=== PATIENT | female | born 1970 | race Caucasian/White ===

== ENCOUNTER 2023-07-24 19:41 | Emergency (ER) | payer OTHER, SELFPAY ==
--- NOTE | ~2023-07-24 | XR_ITS ---
EXAMINATION: XR WRIST, LEFT XR HAND, LEFT CLINICAL INFORMATION: Pain. COMPARISON: None available. TECHNIQUE: PA, lateral, and oblique views of the left wrist and PA, lateral, and oblique views of the left hand FINDINGS: LEFT WRIST: The bones and soft tissues are normal. No fracture. Alignment is anatomic. Joint spaces are maintained. No erosions or soft tissue calcifications. LEFT HAND: The bones and soft tissues are normal. No fracture. Alignment is anatomic. Joint spaces are maintained. No erosions or soft tissue calcifications. XR/XR hand wrist LT IMPRESSION: No significant abnormality identified.
[2023-07-24 19:58] VITALS: BP 140/56; PULSE 63; RESP 18; TEMP 36.2; O2SAT 98; BMI 29.8
--- NOTE | 2023-07-24 19:59 | ED.GENADULT ---
HPI - General Adult General Chief complaint: Extremity Injury, Upper Stated complaint: L wrist pain, fall Time Seen by Provider: 07/24/23 21:30 Source: patient Limitations: no limitations History of Present Illness HPI narrative: 52-year-old female presents with left hand pain. Pain started prior to arrival after mechanical trip and fall. She did not hit her head or lose consciousness. Pain is moderate nature. Worse with moving. The pain does not radiate. There is no numbness or tingling. There is no significant swelling. Patient denies any prodrome. Related Data Allergies Allergy/AdvReac Type Severity Reaction Status Date / Time Penicillins [PENICILLINS] AdvReac Unknown VOMITING Unverified 07/13/20 16:49 From BENADRYL Allergy Unknown ANXIETY/DYS Uncoded 07/13/20 16:49 KINESIA Review of Systems Review of Systems: CONSTITUTIONAL: Denies weight loss, fever and chills. HEENT: Denies changes in vision and hearing. RESPIRATORY: Denies SOB and cough. CV: Denies palpitations no CP. GI: Denies abdominal pain, nausea, vomiting and diarrhea. : Denies dysuria and urinary frequency. MSK: + myalgia and joint pain. SKIN: Denies rash and pruritus. NEUROLOGICAL: Denies headache and syncope. PSYCHIATRIC: Denies recent changes in mood. Denies anxiety and depression. All other ROS are negative unless in HPI PMFSH Social History Social History Smoked in Last 30 Days: Yes Use of substances other than those prescribed or required for medical reasons: No Advance Directives: No Advance Directives Information Provided: No Physical Exam ED Vital Signs: Vital Signs - 24 hr 07/24/23 19:58 Temperature 97.2 F Pulse Rate 63 Respiratory Rate 18 Blood Pressure 140/56 H Pulse Oximetry 98 Oxygen Delivery Method Room Air BMI result Body Mass Index 29.8 GEN: Well developed, no acute distress, alert, oriented HEENT: Normocephalic, atraumatic, normal external ears, nose appears normal Eyes: Normal to appearance Neck: Supple, no lymphadenopathy Respiratory: Talks in complete sentences, no respiratory distress Extremities: No clubbing cyanosis or edema, tenderness to the distal left 5th metacarpal, no deformity, neurovascularly intact, no snuffbox tenderness Neurologic: No focal neurologic deficits, cranial nerves 2-12 intact, gait normal Skin: No rash Course Course Course Narrative: RME: 52 yosatish jain presents to the ED for left wirst pain after falling unto wrist chasing SoN. patient denies hitting head. Xray of wrist ordered Reevaluation(s) Reevaluation #1: X-ray shows no evidence of fracture. This is most likely contusion. Recommend ice, Tylenol and ibuprofen. Follow up as needed. Time: 21:59 Medical Decision Making Medical Decision Making MDM Narrative: 52-year-old female presents with acute traumatic left hand pain. Differential diagnosis includes fracture, contusion, sprain, strain. Will review x-ray. I have offered analgesics. Differential Diagnosis Differential Diagnoses: The differential diagnosis associated with the presentation includes (See above) Independent Interpretation I performed an independent interpretation of an: Plain X-Ray (Hand wrist left: No acute traumatic injury) Prescription Management I considered prescription management with: Pain Medication Discharge Plan Discharge Clinical Impression: Contusion of hand Patient Disposition: Home, Self-Care Instructions: Contusion in Adults (ED) Referrals: Priscila Rae MD [Primary Care Provider] - 1 week Interventions: ED Discharge Assessment Last Done: 07/24/23 22:25 Discharge Date/Time: 07/24/23 22:25
--- OUTSIDE RECORDS SUMMARY | 2023-07-24 21:59 | XMS_ITS | Continuity of Care Document ---
Author Name Unknown Organization [facility] ter Address [address] [place] [id number] Care Team Providers Care Bar Manager Name Role Phone Priscila Rae MD Primary Care Physician [phone] Encounter [facility] [place] Date(s): 01/30/23 - 04/07/[address] [id number] Attending Physician: Priscila Rae MD Admitting Physician: Priscila Rae MD Referring Physician: Priscila Rae MD Allergies, Adverse Reactions, Alerts Substance Reaction Severity Status clindamycin N&V Active ciprofloxacin ophthalmic swollen eye Act marie penicillins [D]Nausea and vomiting Activ e sulfa drugs unknown Active Benadryl tardiff dyskinasia Active Immunizations Given and Recorded Vaccine Date Status Refusal Reason [id number] 12y+ bivalent booster vax 10/28/22 Recorded influenza virus vaccine, inactivated 10/24/22 Luiz rded SARS-CoV-2 (COVID-19) mRNA BNT-162b2 vac 10/28/21 Recorded SARS-CoV-2 (COVID-19) mRNA BNT-162b2 vac 03/02/21 Recorded SARS-CoV-2 (COVID-19) mRNA BNT-162b2 vac 01/31/21 Recorded Tet/Diphth/Acel, Pertussis (oldterm) 02/23/09 Give n tetanus/diphtheria/pertussis, acel(Tdap) 02/23/09 Recorded Tetanus-Diphth Toxoids, Adult (oldterm) 1 10/27/96 Given 1Admin Note: Manuf by [employer] biologic labs Medications aspirin 81 mg oral tablet, chewable 81 mg, 1, tablet, By Mouth, Daily, # 30 tablet, Refills 0, Tot. Refills 0, Maintenance, 02/02/23 9:09:00 EDT, Route to Pharmacy Electronically, [facility]/pharmacy #[id number], Partial fill upon patient request if the prescription is for a schedule II opioid drug.... Start Date: 02/02/23 Status: Ordered Lipitor 20 mg oral tablet 1 tablet = 20 mg, By Mouth, Daily at bedtime, # 30 tablet, 0 Refills, Maintenance, 02/02/23 9:09:00EDT, Tablet, [facility]/pharmacy #[id number], Partial fill upon patient request if the prescription is for a schedule II opioid drug., 157, cm, 01/17/23 13:36:00 ED... Start Date: 02/02/23 Status: Ordered nitroglycerin 0.3 mg sublingual tablet 1 tablet = 0.3 mg, Sublingual, Every 5 minutes, PRN for chest pain, # 50 tablet, 0 Refills, Maintenance, 02/02/23 9:19:00 EDT, Tablet, [facility]/pharmacy #[id number], Partial fill upon patient request if the prescription is for a schedule II opioid drug., 157, cm... Start Date: 02/02/23 Status: Ordered Problem List Condition Confirmation Course Effective Dates Status Health Status Informant Chiari I malformation Confirmed Active Generalized anxiety disorder Confirmed Active Hypercholesterolemia Confirmed Active Hyperglycemia Confirmed Active Obese class I Confirmed Active Sleep apnea Confirmed Active Tobacco abuse Confirmed 02/23/09 Active Social History Social History Type Response Smoking Status Current every day sm oker; Type: Cigarettes; Other: 10-15 cig per day; entered on: 12/20/14 Sex Patient Care team information Care Team Personnel Name: Butch RONQUILLO, Priscila Rubalcava Position: [facility] Physician - Primary Care Member Role: PCP Address: Address: [address] [place] [address] [place] [address]- Name: Morena Noel RN Position: [facility] RN Member Role: Primary Care Nurse Name: Danita Thomas Position: [facility] Outreach Member Role: Lifetime Consulting Physician Care Team Related Persons Name: LUCIA ARIAS Address: home [address], [place] Name: MELLY BOYD Address: home [address], [place] Name: MELITON BOYD Address: home [address] [place] [address]
--- OUTSIDE RECORDS SUMMARY | 2023-07-24 21:59 | XMS_ITS | Continuity of Care Document ---
Author Name Unknown Organization [facility] Address [address] [place] [id number]- Care Team Providers Care Curb Attendant Name Role Phone Priscila Rae MD Primary Care Physician Encounter [facility] Date(s): 02/01/23 - 02/02/[address] [address]- Encounter Diagnosis Chest pain(Final) - 02/01/23 Discharge Disposition: A-D/C Home Attending Physician: Mitra Bowman MD Admitting Physician: Atiya Quiles MD Referring Physician: Not on Staff, Referring MD Allergies, Adverse Reactions, Alerts Substance Reaction Severity Status clindamycin N&V Active ciprofloxacin ophthalmic swollen eye Act marie penicillins [D]Nausea and vomiting Activ e sulfa drugs unknown Active Benadryl tardiff dyskinasia Active Immunizations Given and Recorded Vaccine Date Status Refusal Reason [id number] 12y+ bivalent booster vax 10/28/22 Recorded influenza virus vaccine, inactivated 10/24/22 Luiz rded SARS-CoV-2 (COVID-19) mRNA BNT-162b2 vac 10/28/21 Recorded SARS-CoV-2 (COVID-19) mRNA BNT-162b2 vac 03/02/21 Recorded SARS-CoV-2 (COVID-19) mRNA BNT-162b2 vac 01/31/21 Recorded Tet/Diphth/Acel, Pertussis (oldterm) 02/23/09 Give n tetanus/diphtheria/pertussis, acel(Tdap) 02/23/09 Recorded Tetanus-Diphth Toxoids, Adult (oldterm) 1 10/27/96 Given 1Admin Note: Manuf by Mass biologic labs Medications aspirin 81 mg oral tablet, chewable 81 mg, 1, tablet, By Mouth, Daily, # 30 tablet, Refills 0, Tot. Refills 0, Maintenance, 02/02/23 9:09:00 EDT, Route to Pharmacy Electronically, [facility]/pharmacy #[id number], Partial fill upon patient request if the prescription is for a schedule II opioid drug.... Start Date: 02/02/23 Status: Ordered Lipitor 20 mg oral tablet 1 tablet = 20 mg, By Mouth, Daily at bedtime, # 30 tablet, 0 Refills, Maintenance, 02/02/23 9:09:00EDT, Tablet, [facility]/pharmacy #[id number], Partial fill upon patient request if the prescription is for a schedule II opioid drug., 157, cm, 01/17/23 13:36:00 ED... Start Date: 02/02/23 Status: Ordered nitroglycerin 0.3 mg sublingual tablet 1 tablet = 0.3 mg, Sublingual, Every 5 minutes, PRN for chest pain, # 50 tablet, 0 Refills, Maintenance, 02/02/23 9:19:00 EDT, Tablet, [facility]/pharmacy #[id number], Partial fill upon patient request if [...] Confirmed Active Tobacco abuse Confirmed 02/23/09 Active Results Radiology Reports * Exam Date Time Procedure Performing Provider Status 02/01/23 4:05 PM Chest 2 Views Frontal and Lat Bettina Watson; Dinah (Verified) Notes: (Chest 2 Views Frontal and Lat) Reason For Exam: Chest Pain;Other: RESULT: Chest 2 Views Frontal and Lat Chest 2 Views Frontal and Lat Hx of Present Illness: pt states about 1 hour ago was walking up the stairs sharp midsternal chest pain and now intermittend pain and radiates to right upper. pt states SOB with intermittent with chest pain no fever or chills no cardic hx; Reason: Other:; Chest Pain; Clinical Question(s): Other: COMPARISON: 07/31/2017 FINDINGS: LINES AND TUBES: None. LUNGS AND PLEURA: Clear lungs. Normal pulmonary vascularity. No pleural effusion. No pneumothorax. HEART, MEDIASTINUM AND ROXANA: Heart is normal in size. Normal mediastinal and hilar contour. BONES AND SOFT TISSUES: No acute abnormality. There is scoliotic curvature of the spine, unchanged. IMPRESSION: No acute abnormality. WSN: [id number] Ordering Physician: Gildardo Trinh Dictated By: Nikki West MD Dictated Date/Time: 02/01/23 4:10 pm Reviewed By: Nikki West MD Signed By: Nikki West MD Signed Date/Time: 02/01/23 4:10 pm Transcribed By: EMERALD Transcribed Date/Time: 02/01/23 4:10 pm Vital Signs Most recent to oldest [Reference Range]: 1 2 3 Weight 81.1 kg (02/02/23 12:13 AM) Oxygen Saturation [94-100 %] 98 % (02/02/23 8:31 AM) 99 % (02/02/23 5:00 AM) 99 % (02/01/23 11:52 PM) Pulse Rate [55-90 bpm] 53 bpm *L* (02/02/23 8:31 AM) 51 bpm *L* (02/02/23 5:00 AM) 58 bpm (02/01/23 11:52 PM) Blood Pressure [90-138/55-84 mm Hg] 133/64mm Hg (02/02/23 8:31 AM) 106/50mm Hg (02/02/23 5:00 AM) 112/47mm Hg (02/01/23 11:52 PM) Respiratory Rate [16-30 br/min] 18 br/min (02/02/23 8:31 AM) 16 br/min (02/02/23 5:00 AM) 18 br/min (02/02/23 12:58 AM) Temperature [96.8-100.4 DegF] 97.9 DegF (02/02/23 8:31 AM) 97.3 DegF (02/02/23 5:00 AM) 97.4 DegF (02/01/23 11:52 PM) Mode of Delivery (Oxygen) Room air (02/02/23 8:31 AM) Room air (02/02/23 5:00 AM) Room air (02/01/23 11:52 PM) Blood pressure sites Arm, left (02/02/23 8:31 AM) Arm, left (02/02/23 5:00 AM) Arm, left (02/01/23 11:52 PM) Temperature Route Oral (02/02/23 8:31 AM) Oral (02/02/23 5:00 AM) Oral (02/01/23 11:52 PM) Weight Obtained Via Bed scale (02/02/23 12:13 AM) Social History Social History Type Response Smoking Status Current every day sm oker; Type: Cigarettes; Other: 10-15 cig per day; entered on: 12/20/14 Sex Admission evaluation note * Erin RONQUILLO, Nile Seymour: MODIFY, PERFORM Event Display: Admission Note Authored Date: [id number] Patient: ??FRANCOIS MARTINEZ ? Age:??52 Years?Sex:??Female?:??1970?? Chief Complaint/Reason for Consultation chest pain History of Present Illness Ms. Martinez is a 52-year-old female with PMH of cholecystectomy, borderline diabetes, hypercholesterolemia who presented with intermittent chest pain. ?? Patient states that around 2 hours prior to admission??she developed squeezing- like central nonradiating chest pain associated with nausea??while walking up the stairs.??It was also asociated with mild shortness of breath.??Both improved with rest.?? It happened again twice more while walking??hence her had her come to the ED.??No history of heart attacks, no family history of MIs at a young age, no fever/chills/nausea/vomiting. She is an active smoker with at least 30 pack years. Had previously seen a automotive parts salesperson in the past for skipping heart beats, was told she had some evidence of something related to heart beat skipping but is not sure what it was aside from it not being a serious concern, did not need further work up. ?? On arrival to the ER she was hemodynamically stable, labs showed unremarkable CBC, unremarkable BMP, troponin less than 6x2.?? EKG showed sinus rhythm, ventricular rate 69 bpm, PVC, no ST elevations or depressions, no T wave inversions, no Q waves, normal intervals.?? Chest x-ray was unremarkable.?? She was given 324 mg of aspirin.?? Since she continued to have some chest pain decision was made to bring in for ACS rule out. Review of Systems All systems reviewed and negative except as indicated in HPI. Objective Vital Signs?? Temperature: 98.2 DegF (02/01/23 21:01:00) Temperature Route: Oral (02/01/23 21:01:00) Pulse Rate: 55 bpm (02/01/23 21:01:00) Respiratory Rate: 18 br/min (02/01/23 21:01:00) Systolic Blood Pressure: 118 mm Hg (02/01/23 21:01:00) Diastolic Blood Pressure: 69 mm Hg (02/01/23 21:01:00) Blood pressure sites: Arm, left (02/01/23::00) Mean Arterial Pressure: 85 mm Hg (02/01/23 21::00) Pulse Pressure: 49 mm Hg (02/01/23 21:01:00) Oxygen Saturation: 98 % (02/01/23 21:01:00) Mode of Delivery (Oxygen): Room air (02/01/23 21:01:00) Early Warning Score: 0 (02/01/23 23:32:34) ? Intake/Output? No Data Available ? Physical Exam Constitutional: Alert, in no acute distress. Head EENT: Extraocular muscle movement intact.??Moist mucous membranes.?? Neck: Supple. No JVD. Respiratory: Clear to auscultation. No wheezing or crackles. No use of accessory muscles. Cardiovascular: S1S2 regular. No murmurs, rubs or gallops. Gastrointestinal: Abdomen soft, non-tender, non-distended. Normal bowel sounds. Genitourinary: No CVA tenderness. Extremities: No lower extremity pitting??edema. No cyanosis or clubbing. Neurologic: AAOx3, Speech normal. No focal neurological deficits. Skin: No rash. Psychiatric: Normal mood and affect Assessment/Plan Chest pain Rule out ACS -Chest pain is cardiac in nature (exertional, squeeze-like, relieves with rest), differentials include stable angina vs GERD??or costochondritis -EKG with no acute ST elevation or depressions, troponin x2 is negative. -We will admit the patient to telemetry unit, continue cardiac monitoring to rule out fatal arrhythmias -She has received 324 mg of aspirin -EKG/nitro PRN for chest pain -f/u outpatient automotive parts salesperson to evaluate need for stress test ?? Code status: full DVT ppx:??lovenox Diet: cardiac Dispo: obs ?? Total Visit Time: I personally spent a total of 60 minutes, including both qpmn-to-njso and nrl-pxcj-gz-face time on the date of the encounter, addressing the above diagnoses. Activities performed in this time include chart review, obtaining / reviewing history, performing amedically necessary evaluation, documentation and counseling. ?? Nile Khan MD Histories Past Medical History/Problem List Active Problems??(7) Chiari I malformation Generalized anxiety disorder Hypercholesterolemia Hyperglycemia Obese class I Sleep apnea Tobacco abuse ? Past Surgical History History of surgery: 09/26/21 Cholecystectomy: 07/16/17 cysto: 07/03/12 ? Social History Alcohol Details:??Use: Past. 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 Exercise Details:??Self assessment: Good condition. ??Regular exercise: No. Home/Environment Details:??Living situation: Home/Independent. ??Lives with: Children, Spouse. Nutrition/Health Details:??Diet: Regular. Tobacco Details:??Current every day smoker, Other: 10-15 cig per day. ??Type: Cigarettes. ? Family History Mother: Chronic kidney disease; Hypertension Father (): Diabetes mellitus type II; Hypercholesterolemia ?01-JAN-2014 07:2 7:07<$> Pat. Grandmother: Diabetes mellitus type II Mat. Grandfather: Diabetes mellitus type II Sister (Heather): Asthma Son: Asperger's syndrome ? Medications Home Medications Acetaminophen (Tylenol 8 Hour Caplet)?1,000?Milligram?By Mouth?Every 8 hours Multivitamin?Daily ? Inpatient Medications Medications (1) Active SCHEDULED: (1) Enoxaparin 40 mg Inj (Enoxaparin Inj) ??40 mg 0.4 mL, Subcutaneous Injection, Daily CONTINUOUS: (0) PRN: (0) ? Results Recent Labs BLOOD COUNT & DIFF WBC 8.2 k/mm3 ()?? 02/01/2023 15:20 RBC 4.55 m/mm3 ()?? 02/01/2023 15:20 Hgb 13.9 Gm/dL ()?? 02/01/2023 15:20 Hct 41.6 % ()?? 02/01/2023 15:20 MCV 91.4 femtoliters ()?? 02/01/2023 15:20 MCH 30.5 pg ()?? 02/01/2023 15:20 MCHC 33.4 g/dL ()?? 02/01/2023 15:20 Platelet Count 248 k/mm3 ()?? 02/01/2023 15:20 RDW-SD 45.1 femtoliters ()?? 02/01/2023 15:20 MPV 10.3 femtoliters ()?? 02/01/2023 15:20 Nucleated RBC (Automated) 0.0 #/100 WBC'S ()?? 02/01/2023 15:20 Abs. NRBC 0.0 k/mm3 ()?? 02/01/2023 15:20 Abs. Neut 5.1 k/mm3 ()?? 02/01/2023 15:20 Abs. Lymph 2.5 k/mm3 ()?? 02/01/2023 15:20 Abs. Boyle 0.5 k/mm3 ()?? 02/01/2023 15:20 Abs. Eo 0.1 k/mm3 ()?? 02/01/2023 15:20 Abs. Baso 0.1 k/mm3 ()?? 02/01/2023 15:20 Neut % 61.7 % ()?? 02/01/2023 15:20 Lymph % 30.3 % ()?? 02/01/2023 15:20 Boyle % 5.7 % ()?? 02/01/2023 15:20 Eos % 1.2 % ()?? 02/01/2023 15:20 Baso % 0.9 % ()?? 02/01/2023 15:20 Imm Gran 0.2 % ()?? 02/01/2023 15:20 Abs. Imm Gran 0.0 k/mm3 ()?? 02/01/2023 15:20 ?? CARDIAC High Sensitivity Troponin (HSTnT) <6 ng/L ()?? 02/01/2023 17:51 ?? CHEM GENERAL Sodium 141 mmol/L ()?? 02/01/2023 15:20 Potassium 4.0 mmol/L ()?? 02/01/2023 15:20 Chloride 103 mmol/L ()?? 02/01/2023 15:20 Bicarbonate Level 29 mmol/L ()?? 02/01/2023 15:20 Anion Gap 9 ()?? 02/01/2023 15:20 Glucose Level 97 mg/dL ()?? 02/01/2023 15:20 BUN 16 mg/dL ()?? 02/01/2023 15:20 Creatinine-Blood 0.7 mg/dL ()?? 02/01/2023 15:20 Estimated GFR Creatinine 99 ML/MIN/1.73 M2 ()?? 02/01/2023 15:20 Calcium 9.6 mg/dL ()?? 02/01/2023 15:20 ?? HEME OTHER Hold Blue Top SPECIMEN DISCARDED AFTER 4 HOURS. ()?? 02/01/2023 15:20 ?? VIROLOGY COVID-19 by RT-PCR NEGATIVE ()?? 02/01/2023 20:17 ? Blood Glucose Trend Glucose Level: 97 mg/dL (02/01/23 15:20:00) ? CBC, CBC w/Diff?? CBC?? Differential?? WBC: 8.2 k/mm3 (15:20) Abs. Neut: 5.1 k/mm3 (15:20) RBC: 4.55 m/mm3 (15:20) Abs. Lymph: 2.5 k/mm3 (15:20) Hct: 41.6 % (15:20) Abs. Boyle: 0.5 k/mm3 (15:20) RDW-SD: 45.1 femtoliters (15:20) Abs. Eo: 0.1 k/mm3 (15:20) Nucleated RBC (Automated): 0 #/100 WBC'S (15:20) Abs. Baso: 0.1 k/mm3 (15:20) Abs. NRBC: 0 k/mm3 (15:20) Neut %: 61.7 % (15:20) ?? Lymph %: 30.3 % (15:20) ?? Boyle %: 5.7 % (15:20) ?? Eos %: 1.2 % (15:20) ?? Baso %: 0.9 % (15:20) ?? Imm Gran: 0.2 % (15:20) ?? Abs. Imm Gran: 0 k/mm3 (15:20) ? LFT?? No qualifying data available. ?? Urinalysis?? No qualifying data available. ?? Microbiology ?? COVID-19 (Novel Coronavirus), Rapid PCR?? Completed?? Source: Nasal Body Site: Nose Collected Dt/Tm: 02/01/2023 19:16 Last Updated Dt/Tm: 02/01/2023 21:22 ? Blood Gases?? No qualifying data available. ?? EKG study * Event Display: ECG 12-Lead Authored Date: Please click on pdf link to open report * Event Display: ECG 12-Lead Authored Date: Ventricular Rate: 69 BPM Atrial Rate: 69 BPM P-R Interval: 138 ms QRS Duration: 84 ms Q-T Interval: 384 ms QTC Calculation(Bazett): 411 ms P Od[place]: 34 degrees R Odessa: 8 degrees T Od[place]: 25 degrees Sinus rhythm with occasional Premature ventricular complexes Otherwise normal ECG When compared with ECG of 15-NOV-2016 17:07, Premature ventricular complexes are now Present Confirmed by ALEKSANDAR LYONS MD ([id number]) on 02/02/2023 12:06:39 PM [place]: [facility] * Morena Noel RN: PERFORM, SIGN, VERIFY Event Display: Progress Note Hospital Authored Date: Patient: FRANCOIS MARTINEZ Age: 52 years Sex: Female : 1970 Associated Diagnoses: None Author: Morena Noel RN Findings Upon arrival to unit patient alert and oriented to self/place/time/event Patient's VSS and comfortable on RA Patient with no active chest pain, N/V, SOB, dizziness, headache, vision changes Patient is ambulatory, voiding appropriately and tolerating PO intake Patient aware of negative trops as stated by Provider Telemetry monitoring continues, NSR with PVC and ventricular bigeminy Unit orientation provided to patient, call dobbins within reach, safety and comfort measures maintained Note * Altagracia Cabrera RN: PERFORM Event Display: Discharge/Transfer Note Hospital Authored Date: Nursing Discharge Note Entered On: 02/02/2023 9:52 EDT Performed On: 02/02/2023 9:52 EDT by Altagracia Cabrera RN Nursing Discharge Note 2 Discharge Time : 02/02/2023 9:52 EDT Discharge Level of Care at Discharge : Home/Skilled Nursing/Foster Care Patient Left Unit Via : Ambulatory Patient Accompanied Off Unit with : Responsible adult DC Instructions Provided & Signed by Pt : Yes Patient Understands D/C Instructions : Yes Patient Instructions Discharge Signed : Yes Did Pt have Specialty Bed or Wound Vac : No Altagracia Cabrera RN - 02/02/2023 9:52 EDT * Colby RONQUILLO, Mitra: PERFORM Event Display: Discharge/Transfer Note Hospital Authored Date: Patient: ??FRANCOIS MARTINEZ ? Age:??52 Years?Sex:??Female?:??1970?? Patient Information Discharge Location: [facility] Primary Care Physician: Priscila Rae MD Admit Date/Time: 02/01/23 15:11 Discharge Disposition Discharge Disposition: Home: No Services Discharge Diagnosis Chest pain (R07.9) ?? _ Discharge Medications Aspirin (aspirin 81 mg oral tablet, chewable)?81?Milligram?1?tablet?By Mouth?Daily Atorvastatin (Lipitor 20 mg oral tablet)?1?tab(s)?20?Milligram?By Mouth?Daily at bedtime Nitroglycerin (nitroglycerin 0.3 mg sublingual tablet)?1?tab(s)?0.3?Milligram?Sublingual?Every 5 minutes?as needed?for chest pain ? Quality Measures Tobacco Use Treatment:? Medications Started Aspirin (aspirin 81 mg oral tablet, chewable)?81?Milligram?1?tablet?By Mouth?Daily Atorvastatin (Lipitor 20 mg oral tablet)?1?tab(s)?20?Milligram?By Mouth?Daily at bedtime. Nitroglycerin (nitroglycerin 0.3 mg sublingual tablet)?1?tab(s)?0.3?Milligram?Sublingual?Every 5 minutes?as needed?for chest pain. Medications Discontinued None. Doses Changed None. Allergies Allergies ?(Active and Proposed Allergies Only) sulfa drugs? (Severity: Unknown severity, Onset: Unknown) ?Reactions: unknown clindamycin? (Severity: Unknown severity, Onset: Unknown) ?Reactions: N&V Benadryl? (Severity: Unknown severity, Onset: Unknown) ?Reactions: tardiff dyskinasia ciprofloxacin ophthalmic? (Severity: Unknown severity, Onset: Unknown) ?Reactions: swollen eye penicillins? (Severity: Unknown severity, Onset: Unknown) ?Reactions: [D]Nausea and vomiting ? PCP Follow-Up/Heads-Up Please consider outpatient stress test. Future Appointments Friday 7:00 PM EDT ?? With: Where: [facility] Radiology [facility] [address] [place] [address]- Friday 10:30 AM EDT ?? With: Where: [facility] Radiology [facility] [address], [address] [place] [address]- Friday 1:00 PM EDT ?? With: Butch RONQUILLO, Priscila Where: Primary Care [address] [address]- Hospital Course ??52-year-old female with PMH of cholecystectomy, borderline diabetes, hypercholesterolemia who presented with intermittent chest pain. ?? Chest pain Rule out ACS Denies any further chest pain to me this morning. -She has received 324 mg of aspirin Risk factor includes??prediabetes and history of hypercholesteremia however not taking any medication at home. I have started the patient on aspirin 81 mg daily. Atorvastatin 20 mg daily. Also will discharge her with??as needed nitroglycerin on board. She will see her PCP in 1 week??and would be benefited??by outpatient tress test.?? Patient was counseled to touch base with PCP for outpatient tress test which she understand completely. Objective Measurements?? Weight: 81.1 kg (02/02/23) ?? Vital Signs?? Temperature: 97.9 DegF (02/02/23 08:31:00) Temperature Route: Oral (02/02/23 08:31:00) Pulse Rate:??53 bpm??Low (02/02/23 08:31:00) Respiratory Rate: 18 br/min (02/02/23 08:31:00) Systolic Blood Pressure: 133 mm Hg (02/02/23 08:31:00) Diastolic Blood Pressure: 64 mm Hg (02/02/23 08:31:00) Blood pressure sites: Arm, left (02/02/23 08:31:00) Mean Arterial Pressure: 69 mm Hg (02/02/23 05:00:00) Pulse Pressure: 56 mm Hg (02/02/23 05:00:00) Oxygen Saturation: 98 % (02/02/23 08:31:00) Mode of Delivery (Oxygen): Room air (02/02/23 08:31:00) Early Warning Score: 2 (02/02/23 08:32:17) ? . Physical Exam ?? General: Lying comfortably in bed,no evident distress Cardiac: S1 + S2 + 0, no murmurs heard Respiratory: CTA, No wheezes, Rales or crackles heard Abdomen: soft, nondistended, nontender Extremities: No edema or cyanosis present Neurological: AO X3,cranial nerves grossly normal? Pending Results No Pending Results Follow-Up Appointments Added Follow Up ?Time Frame ?Comments Priscila Rae MD?2 to 3 weeks Patient Instructions Follow-up with PCP in 1 week??and then outpatient stress test. Post Discharge Care Discharge ?02/02/23 9:14:00 EDT Discharge Prescriptions ?ePrescribed, ??Sent to [facility] pharmacy [facility], ??02/02/23 9:14:00 EDT Home Health Face to Face ^HomeHealthFTF Results Discharge Labs BLOOD COUNT & DIFF WBC 7.3 k/mm3 ()?? 02/02/2023 00:44 RBC 4.32 m/mm3 ()?? 02/02/2023 00:44 Hgb 12.9 Gm/dL ()?? 02/02/2023 00:44 Hct 39.9 % ()?? 02/02/2023 00:44 MCV 92.4 femtoliters ()?? 02/02/2023 00:44 MCH 29.9 pg ()?? 02/02/2023 00:44 MCHC 32.3 g/dL (Low)?? 02/02/2023 00:44 Platelet Count 219 k/mm3 ()?? 02/02/2023 00:44 RDW-SD 45.1 femtoliters ()?? 02/02/2023 00:44 MPV 10.7 femtoliters ()?? 02/02/2023 00:44 Nucleated RBC (Automated) 0.0 #/100 WBC'S ()?? 02/02/2023 00:44 Abs. NRBC 0.0 k/mm3 ()?? 02/02/2023 00:44 Abs. Neut 4.0 k/mm3 ()?? 02/02/2023 00:44 Abs. Lymph 2.6 k/mm3 ()?? 02/02/2023 00:44 Abs. Boyle 0.5 k/mm3 ()?? 02/02/2023 00:44 Abs. Eo 0.2 k/mm3 ()?? 02/02/2023 00:44 Abs. Baso 0.1 k/mm3 ()?? 02/02/2023 00:44 Neut % 54.8 % ()?? 02/02/2023 00:44 Lymph % 35.9 % ()?? 02/02/2023 00:44 Boyle % 6.2 % ()?? 02/02/2023 00:44 Eos % 2.3 % ()?? 02/02/2023 00:44 Baso % 0.7 % ()?? 02/02/2023 00:44 Imm Gran 0.1 % ()?? 02/02/2023 00:44 Abs. Imm Gran 0.0 k/mm3 ()?? 02/02/2023 00:44 ?? CARDIAC High Sensitivity Troponin (HSTnT) <6 ng/L ()?? 02/01/2023 17:51 ? CHEM GENERAL Sodium 143 mmol/L ()?? 02/02/2023 00:44 Potassium 3.7 mmol/L ()?? 02/02/2023 00:44 Chloride 103 mmol/L ()?? 02/02/2023 00:44 Bicarbonate Level 30 mmol/L (High)?? 02/02/2023 00:44 Anion Gap 10 ()?? 02/02/2023 00:44 Glucose Level 121 mg/dL (High)?? 02/02/2023 00:44 BUN 15 mg/dL ()?? 02/02/2023 00:44 Creatinine-Blood 0.7 mg/dL ()?? 02/02/2023 00:44 Estimated GFR Creatinine 99 ML/MIN/1.73 M2 ()?? 02/02/2023 00:44 Calcium 9.1 mg/dL ()?? 02/02/2023 00:44 Phosphorus 4.0 mg/dL ()?? 02/02/2023 00:44 Magnesium 1.8 mg/dL ()?? 02/02/2023 00:44 Protein, Total 5.7 Gm/dL (Low)?? 02/02/2023 00:44 Albumin 4.1 Gm/dL ()?? 02/02/2023 00:44 AG Ratio 2.6 ()?? 02/02/2023 00:44 Alkaline Phosphatase 46 units/L ()?? 02/02/2023 00:44 AST (SGOT) 16 units/L ()?? 02/02/2023 00:44 ALT (SGPT) 19 units/L ()?? 02/02/2023 00:44 Bilirubin, Total 0.2 mg/dL ()?? 02/02/2023 00:44 ? HEME OTHER Hold Blue Top SPECIMEN DISCARDED AFTER 4 HOURS. ()?? 02/01/2023 15:20 ? VIROLOGY COVID-19 by RT-PCR NEGATIVE ()?? 02/01/2023 20:17 ? 35_ minutes spent on discharge * Yael Beltran RN: PERFORM Event Display: Patient Education/Instruction Authored Date: Inpatient Adult Discharge Instructions [address] [address] Name: FRANCOIS MARTINEZ : 1970 Visit: 02/01/2023 15:11:00 Current Date: 02/02/2023 09:25 Account: [id number] Inpatient Adult Discharge Instructions We would like to thank you for allowing us to assist you with your healthcare needs. The following includes patient education materials and information regarding your injury/illness. Our entire staffstrives to provide an excellent experience for our patients and their families. PLEASE ENSURE YOU FOLLOW-UP PER THE INSTRUCTIONS BELOW! ?? YOUR OPINION IS IMPORTANT TO US! Please complete the survey you may receive by mail or email. Your feedback will be used to make improvements to the healthcare experiences of our patients and their families. Surveys are administered by [employer]. ?? If further treatment with your primary care physician or another doctor is recommended, it is important for you to keep the appointment. Call your primary care physician or return to the Emergency Department immediately if your condition worsens, fails to improve, or new symptoms develop. If you need to find a doctor, you can call [facility] for a referral at [phone] or toll free at [email or web address] ([email or web address]) or log in to [email or web address].. ?? You can view and manage your care through the patient portal or by using a health care coby of your choosing. [employer] is a website that allows you to securely view your medical information including your hospital discharge summary, office visit summaries, medications and follow-up visits. You can also request appointments, renew medications, and request access to your medical information using a health care coby of your choosing, or just ask a question. You can enroll at [email or web address] or register during your next office visit. You have been discharged from [facility], Patient Care Unit: D3B. If you have any questions regarding these instructions after you leave, please call us and we will be happy to assist you. [facility] Your Care Team Attending Physician Mitra Bowman MD Discharging Providers Mitra Bowman MD Reason for Admission General medical Your Diagnosis Chest pain Tests Performed Below is a partial list of the tests performed during your hospitalization. You may have had other tests and procedures not included in this list. Please discuss all test results with your provider. Basic Metabolic Panel CBC w/ Differential Comprehensive Metabolic Panel COVID-19 (Novel Coronavirus), Rapid PCR High??Sensitivity??Troponin T Hold Blue Top Tube Magnesium Level Phosphorus Level XR Chest 2 Views Frontal and Lat Primary Care Provider Dash MD, Priscila M Advance Directive Health Care Proxy on File No Patient refuses to discuss Discharge Vitals Temperature: 97.9 DegF Weight: 81.1 kg Pulse Rate:??53 bpm??Low ?? Respiratory Rate: 18 br/min ?? Systolic Blood Pressure: 133 mm Hg ?? Diastolic Blood Pressure: 64 mm Hg ?? Oxygen Saturation: 98 % ?? Studies Pending All tests and labs ordered during this hospital stay have been completed unless listed below. Please discuss all pending results with your provider listed above in these instructions. ?? No incomplete studies found What to do next Instructions From Your Doctor Follow-up with PCP in 1 week??and then outpatient stress test. Discharge Orders Scheduled Follow-Up Appointments Friday 7:00 PM EDT ?? With: Where: [facility] [address] [place] [address]- Friday 10:30 AM EDT ?? With: Where: [facility] Radiology [facility] [address], [address] [place] [address]- Friday 1:00 PM EDT ?? With: Priscila Rae MD Where: [facility] [address] [address]- You Need to Schedule the Following Appointments Follow Up with??Priscila Rae MD When??Within 2 to 3 weeks Where: [address] [place] [address] [place] [address]- Discharge Medications FRANCOIS MARTINEZ :1970 Visit Date:02/01/2023 Medications: Please continue your medications until treatment is completed or stopped by your provider. Medications not listed below should be discontinued. Discuss any questions related to medications with your provider. What How Much When Instructions Next Dose New Aspirin (aspirin 81 mg oral tablet, chewable) 1 tab(s) Oral Daily Pickup at [facility]/pharmacy #202402/03/23 9am New Atorvastatin (Lipitor 20 mg oral tablet) 1 tab(s) Oral Daily at Bedtime Pickup at [facility]/pharmacy #202402/02/23 9pm New Nitroglycerin (nitroglycerin 0.3 mg sublingual tablet) 1 tab(s) Sublingual Every 5 minutes as needed for for chest pain Pickup at [facility]/pharmacy #2024 as needed Pharmacy Information [facility]/pharmacy #2024: [address] [place], [place] [id number] [phone] ?? What How Much When Comments Stop Taking Acetaminophen (Tylenol 8 Hour Caplet) 1,000 Milligram Oral Every 8 hours Stop Taking Multivitamin Daily Test Results Below is a partial list of the most recent Laboratory test results done prior to this discharge. You may have had other tests and procedures not included in this list. Please discuss all test resultswith your provider. Basic Metabolic Panel (02/01/2023) ???Sodium - 141 mmol/L???Potassium - 4.0 mmol/L???Chloride - 103 mmol/L???Bicarbonate Level - 29 mmol/L???Anion Gap - 9???Glucose Level - 97 mg/dL???BUN - 16 mg/dL???Creatinine-Blood - 0.7 mg/dL???Estimated GFR Creatinine - 99 ML/MIN/1.73 M2???Calcium - 9.6 mg/dL CBC w/ Differential (02/02/2023) ???WBC - 7.3 k/mm3???RBC - 4.32 m/mm3???Hgb - 12.9 Gm/dL???Hct - 39.9 %???MCV - 92.4 femtoliters???MCH - 29.9 pg???MCHC - 32.3 g/dL???Platelet Count - 219 k/mm3???RDW-SD - 45.1 femtoliters???MPV - 10.7 femtoliters???Nucleated RBC (Automated) - 0.0 #/100 WBC'S???Abs. NRBC - 0.0 k/mm3???Abs. Neut - 4.0 k/mm3???Abs. Lymph - 2.6 k/mm3???Abs. Boyle - 0.5 k/mm3???Abs. Eo - 0.2 k/mm3???Abs. Baso - 0.1 k/mm3???Neut % - 54.8 %???Lymph % - 35.9 %???Boyle % - 6.2 %???Eos % - 2.3 %???Baso % - 0.7 %???Imm Gran - 0.1 %???Abs. Imm Gran - 0.0 k/mm3 Comprehensive Metabolic Panel (02/02/2023) ???Sodium - 143 mmol/L???Potassium - 3.7 mmol/L???Chloride - 103 mmol/L???Bicarbonate Level - 30 mmol/L???Anion Gap - 10???Glucose Level - 121 mg/dL???BUN - 15 mg/dL???Creatinine-Blood - 0.7 mg/dL???Estimated GFR Creatinine - 99 ML/MIN/1.73 M2???Calcium - 9.1 mg/dL???Protein, Total - 5.7 Gm/dL???Alb umin - 4.1 Gm/dL???AG Ratio - 2.6???Alkaline Phosphatase - 46 units/L???AST (SGOT) - 16 units/L???ALT (SGPT) - 19 units/L???Bilirubin, Total - 0.2 mg/dL COVID-19 (Novel Coronavirus), Rapid PCR (02/01/2023) ???COVID-19 by RT-PCR - NEGATIVE High??Sensitivity??Troponin T (02/01/2023) ? ?High Sensitivity Troponin (HSTnT) - <6 ng/L Hold Blue Top Tube (02/01/2023) ???Hold Blue Top - SPECIMEN DISCARDED AFTER 4 HOURS. Magnesium Level (02/02/2023) ???Magnesium - 1.8 mg/dL Phosphorus Level (02/02/2023) ???Phosphorus - 4.0 mg/dL Allergies (NKA means No Known Allergies) Benadryl??(tardiff dyskinasia) ciprofloxacin ophthalmic??(swollen eye) clindamycin??(N&V) penicillins??([D]Nausea and vomiting) sulfa drugs??(unknown) Problems Active Problems??(7) Chiari I malformation?? Generalized anxiety disorder?? Hypercholesterolemia?? Hyperglycemia?? Obese class I?? Sleep apnea?? Tobacco abuse?? Education Materials Below is the list of Educational Leaflet Providered with your Discharge Instructions. Valuables and Belongings I fully understand and agree that [facility] accepts no responsibility for all my personal property including clothing, toilet articles, radios, jewelry, dentures, hearing aids, rings, money, or any other property that is in my possession or is brought to me after admission. I understand certain valuables may be placed in a hospital safe for a short period of time. I understand that the hospital is not liable for loss or damage due to accident, fire, or other natural occurrence while said property is in the safe. I accept full responsibility for any personal property that I keep with me, and will not hold the hospital responsible in case of loss or disappearance. I acknowledge that i have been encouraged to send valuables and belongings home. ?? No Valuables/Belongings: No valuables/belongings present Review of Valuable and Belonging List: With patient Date for Pt to Sign Valuables/Belongings: 02/02/23 00:06:00 ?? Other Discharge Information ? Pulmonary Rehab Status?? Pulmonary Rehab Discharge Status?? Respiratory Rate: 18 br/min ? Common Emergency Awareness Tips IS IT A STROKE? Act FAST and Check for these signs: FACE Does the face look uneven? ARM Does one arm drift down? SPEECH Does their speech sound strange? TIME Call at any sign of stroke ?? Heart Attack Signs Chest discomfort: Most heart attacks involve discomfort in the center of the chest and lasts more than a few minutes, or goes away and comes back. It can feel like uncomfortable pressure, squeezing, fullness or pain. Discomfort in upper body: Symptoms can include pain or discomfort in one or both arms, back, neck, jaw or stomach. Shortness of breath: With or without discomfort. Other signs: Breaking out in a cold sweat, nausea, or lightheaded. Remember, MINUTES DO MATTER. If you experience any of these heart attack warning signs, call to get immediate medical attention! ?? Smoking can increase your chances of developing chronic health problems and can cause harmful effects to other family members in your house. If you smoke, you are strongly encouraged to quit. Please call [facility] [employer] Link at [phone] or 6-368-714Heartscape ([phone]) or log in to [email or web address] for referrals to smoking cessation programs. ?? The National Suicide Prevention Hotline is available 19/05 if you or someone you know needs to find a reason to keep living. By calling 4-649-586-zulu (4147) you'll be connected to a skilled, trained counselor at a crisis center in your area. INPATIENT DISCHARGE INSTRUCTIONS SIGNATURE PAGE FRANCOIS MARTINEZ Location:[facility] Registration Date and Time:02/01/2023 15:11 EDT Primary Care Physician: Priscila Rae MD, I FRANCOIS MARTINEZ, have received the above patient education materials/instructions and have verbalized understanding. If ambulance or transport services are being used I further acknowledge being given a choice of service. ?? If you need to contact me, please call me at this number: . Patient/Terminal Operations Supervisor Name: Patient/Terminal Operations Supervisor Signature: Relationship to Patient: Witness Name/Signature: Date: * BHSPowerscribe , CIS S: TRANSCRIBE Nikki West MD: VERIFY Event Display: Result: Authored Date: [id number] Chest 2 Views Frontal and Lat Hx of Present Illness: pt states about 1 hour ago was walking up the stairs sharp midsternal chest pain and now intermittend pain and radiates to right upper. pt states SOB with intermittent with chest pain no fever or chills no cardic hx; Reason: Other:; Chest Pain; Clinical Question(s): Other: COMPARISON: 07/31/2017 FINDINGS: LINES AND TUBES: None. LUNGS AND PLEURA: Clear lungs. Normal pulmonary vascularity. No pleural effusion. No pneumothorax. HEART, MEDIASTINUM AND ROXANA: Heart is normal in size. Normal mediastinal and hilar contour. BONES AND SOFT TISSUES: No acute abnormality. There is scoliotic curvature of the spine, unchanged. IMPRESSION: No acute abnormality. WSN: [id number] Ordering Physician: Gildardo Trinh Dictated By: Nikki West MD Dictated Date/Time: 02/01/23 4:10 pm Reviewed By: Nikki West MD Signed By: Nikki West MD Signed Date/Time: 02/01/23 4:10 pm Transcribed By: EMERALD Transcribed Date/Time: 02/01/23 4:10 pm Patient Care team information Care Team Personnel Name: Priscila Rae MD Position: [facility] Primary Care Physician Member Role: PCP Address: Address: [address] [place] [address] [place] [address]- Name: Morena Noel RN Position: [facility] RN Member Role: Primary Care Nurse Name: Danita Thomas Position: [facility] Outreach Member Role: Lifetime Consulting Physician Name: *MARC Intolu Attending Position: [facility] ED Medicine MD Name: Julia Montgomery MD Position: [facility] Resident Member Role: ED Resident Address: Address: [address] [place] [address] [place] [address]- Name: Araseli Moreland RN Position: [facility] ED RN W/OE and Tasks Member Role: Patient Care Provider Name: Kaity Mas RN Position: [facility] ED RN W/OE and Tasks Member Role: Patient Care Provider Care Team Related Persons Name: LUCIA ARIAS Address: home [address] [place] [id number] Name: MELLY MARTINEZ Address: home [address] [place] [address] Name: MELITON MARTINEZ Address: home [address] [place] [address]
--- OUTSIDE RECORDS SUMMARY | 2023-07-24 21:59 | XMS_ITS | Continuity of Care Document ---
Author Name Unknown Organization [facility] ter Address [address] [place] [id number] Care Team Providers Care Fur Sewer Name Role Phone Butch RONQUILLO, Priscila Rubalcava Primary Care Physician [phone] Encounter [facility] Date(s): 05/18/23 - 05/20/[address] [address]- Encounter Diagnosis Pancreatitis(Final) - 05/18/23 Discharge Disposition: A-D/C Home Attending Physician: Jono Miles MD Admitting Physician: Shanika Cook MD Referring Physician: Not on Staff, Referring MD Allergies, Adverse Reactions, Alerts Substance Reaction Severity Status clindamycin N&V Active ciprofloxacin ophthalmic swollen eye Act marie penicillins [D]Nausea and vomiting Activ e sulfa drugs unknown Active Benadryl tardiff dyskinasia Active Immunizations Given and Recorded Vaccine Date Status Refusal Reason [id number] 12y+ bivalent booster vax 10/28/22 Recorded influenza [...] 02/02/23 9:09:00 EDT, [id number] fill upon patient request if the prescription is for a schedule II opioid drug.... Start Date: 02/02/23 Status: Ordered Lipitor 20 mg oral tablet 1 tablet = 20 mg, By Mouth, Daily at bedtime, # 30 tablet, 0 Refills, Maintenance, 02/02/23 9:09:00EDT, Tablet, [facility]/pharmacy #[id number], Partial fill upon patient request if the prescription is for a schedule II opioid drug., 157, cm, 01/17/23 13:36:00 ED... Start Date: 02/02/23 Status: Ordered LORazepam 1 mg oral tablet See Instructions, 1 tablet By Mouth one hour before MRI and may repeat once as needed., # 2 tablet,0 Refills, Acute 05/14/24 14:55:00 EDT, 05/13/23 14:46:00 EDT, [facility]/pharmacy #[id number], Do not drive, operate machinery or mix with alcohol, 157, cm, ... Start Date: 05/13/23 Stop Date: 05/14/24 Status: Ordered LORazepam 1 mg oral tablet 1 tablet = 1 mg, By Mouth, Daily, 0 Refills, Maintenance, 05/19/23 2:30:00 EDT, Tablet, Partial fill upon patient request if the prescription is for a schedule II opioid drug. Start Date: 05/19/23 Status: Ordered nitroglycerin 0.3 mg sublingual tablet 1 tablet = 0.3 mg, Sublingual, Every 5 minutes, PRN for chest pain, # 50 tablet, 0 Refills, Maintenance, 02/02/23 9:19:00 EDT, Tablet, [facility]/pharmacy #[id number], Partial fill upon patient request if the prescription is for a schedule II opioid drug., 157, cm... Start Date: 02/02/23 Status: Ordered NuLYTELY with Flavor Packs oral powder for reconstitution See Instructions, split prep method. drink one half the night before procedure at 5pm. drink secondhalf six hours prior to procedure., # 4,000 mL, 0 Refills, Maintenance, 04/23/23 13:02:00 EDT, [id number], test date 11/03/23, split prep method.... Start Date: 04/23/23 Status: Ordered Protonix 40 mg oral delayed release tablet = 40 mg, By Mouth, Daily, # 30 tablet, 0 Refills, Maintenance, 05/20/23 9:54:00 EDT, EC Tablet, 158, cm, 05/20/23 7:12:00 EDT, Height, 78, kg, 05/19/23 13:07:00 EDT, Dry Weight Start Date: 05/20/23 Stop Date: 06/19/23 Status: Ordered Problem List Condition Confirmation Course Effective Dates Status Health Status Informant Chiari I malformation Confirmed Active Generalized anxiety disorder Confirmed Active Hypercholesterolemia Confirmed Active Hyperglycemia Confirmed Active Obese class I Confirmed Active Sleep apnea Confirmed Active Tobacco abuse Confirmed 02/23/09 Active Vital Signs Most recent to oldest [Reference Range]: 1 2 3 Height 158 cm (05/20/23 7:12 AM) 158 cm (05/20/23 3:59 AM) 158 cm (05/19/23 11:49 PM) Weight 78 kg (05/19/23 1:07 PM) 78 kg (05/19/23 6:12 AM) 78 kg (05/19/23 5:38 AM) Oxygen Saturation [94-100 %] 99 % (05/20/23 7:12 AM) 98 % (05/20/23 3:59 AM) 99 % (05/19/23 11:49 PM) Pulse Rate [55-90 bpm] 52 bpm *L* (05/20/23 7:12 AM) 47 bpm *L* (05/20/23 3:59 AM) 49 bpm *L* (05/19/23 11:49 PM) Body Mass Index [18.5-24.99 kg/m2] 31.24 kg/m2 *>HHI* (05/19/23 1:07 PM) 31.24 kg/m2 *>HHI* (05/19/23 6:12 AM) 31.24 kg/m2 *>HHI* (05/19/23 5:38 AM) Blood Pressure [90-138/55-84 mm Hg] 130/51mm Hg (05/20/23 7:12 AM) 112/62mm Hg (05/20/23 3:59 AM) 110/50mm Hg (05/19/23 11:49 PM) Respiratory Rate [16-30 br/min] 18 br/min (05/20/23 7:12 AM) 20 br/min (05/20/23 3:59 AM) 20 br/min (05/19/23 11:49 PM) Temperature [96.8-100.4 DegF] 97.6 DegF (05/20/23 7:12 AM) 98.0 DegF (05/20/23 3:59 AM) 97.5 DegF (05/19/23 11:49 PM) Mode of Delivery (Oxygen) Room air (05/20/23 7:12 AM) Room air (05/20/23 3:59 AM) Room air (05/19/23 11:49 PM) Blood pressure sites Arm, left (05/20/23 7:12 AM) Arm, right (05/20/23 3:59 AM) Arm, right (05/19/23 11:49 PM) Temperature Route Oral (05/20/23 7:12 AM) Oral (05/20/23 3:59 AM) Oral (05/19/23 11:49 PM) Dry Weight 78 kg (05/19/23 1:07 PM) 78 kg (05/19/23 6:12 AM) 78 kg (05/19/23 5:38 AM) Weight Obtained Via Patient/family state d (05/18/23 4:32 PM) Dry Weight Obtained Via Patient/family s tated (05/18/23 4:32 PM) Social History Social History Type Response Smoking Status Current every day sm oker; Type: Cigarettes; Other: 10-15 cig per day; entered on: 12/20/14 Sex Admission evaluation note * Dee Dee Stein NP: MODIFY, PERFORM, MODIFY, MODIFY, MODIFY, MODIFY, MODIFY, MODIFY Event Display: Admission Note Authored Date: [id number] Patient: ??FRANCOIS BOYD ? Age:??52 Years?Sex:??Female?:??1970?? History of Present Illness The patient is a 52-year-old female with significant past medical history of Chiari malformation, cholecystectomy, hysterectomy who is??presenting to the ED with worsening abdominal pain.?The patient was seen and evaluated in the ED yesterday, with CT??findings of peripancreatic stranding suggestive of acute interstitial edematous pancreatitis.?? Admission versus discharge was discussed??at that time and the patient elected to go home. ??Since going home, patient has been unable to eat or drink, and has been in worsening pain. ??She does endorse that she has significant amount of drug reactions, and does not want any strong pain medications.?She rates her pain as 6-8/10 and states it is RUQ, and epigastric.?? She describes a burning sensation. ??She denies nausea, vomiting, fever, chest pain or shortness of breath. ?? In the ED, the patient is afebrile with stable vital signs.?? CT scan of the abdomen demonstrates mild peripancreatic stranding suggestive of acute interstitial edematous pancreatitis, no peripancreatic fluid collection or pseudocyst, a few scattered colonic diverticula, without evidence of acute diverticulitis, and mild, apparent circumferential bladder wall thickening, probably due to under distention. ??Laboratory data is significant for Lipase 203->119.?? Urinalysis is negative.?? Thepatient is admitted for pancreatitis. Review of Systems Constitutional:??No weight loss, fever, chills, weakness or fatigue. Allergy/Immune: Denies any??Eczema or hives Eyes:??No visual loss, blurred vision, double vision or yellow sclera ENT:??No hearing loss, sneezing, congestion, runny nose or sore throat. Respiratory:??No shortness of breath, cough or sputum production. Cardiovascular:??No chest pain, chest pressure or chest discomfort. No palpitations or pedal edema. Gastrointestinal:??No anorexia, nausea, vomiting or diarrhea. Abdominal pain.?? No?? blood in stool. Genitourinary:??No burning micturition. No urinary frequency or incontinence. Neurologic:??No headache, dizziness, syncope, unilateral weakness, ataxia.?? Occasional??numbness, tingling in the right hand/foot. No change in bowel or bladder control. Musculoskeletal:??No muscle pain, back pain, joint pain or stiffness. Hematologic/Lymphatics:??No bleeding or bruising. No painful lymph nodes. Skin:??No rash or itching. Endocrine:??No reports of sweating. No cold or heat intolerance. No polyuria or polydipsia. Psychiatric:??No depression.?? Reports anxiety. Objective Vital Signs?? Temperature: 97.8 DegF (05/18/23 21:03:00) Temperature Route: Oral (05/18/23 21:03:00) Pulse Rate:??48 bpm??Low (05/19/23 00:46:00) Respiratory Rate: 19 br/min (05/19/23 00:46:00) Systolic Blood Pressure: 114 mm Hg (05/19/23 00:46:00) Diastolic Blood Pressure: 61 mm Hg (05/19/23 00:46:00) Blood pressure sites: Arm, left (05/19/23 00:46:00) Mean Arterial Pressure: 79 mm Hg (05/19/23 00:46:00) Pulse Pressure: 53 mm Hg (05/19/23 00:46:00) Oxygen Saturation: 96 % (05/19/23 00:46:00) Mode of Delivery (Oxygen): Room air (05/19/23 00:46:00) Early Warning Score: 3 (05/19/23 01:11:31) ? Intake/Output? No Data Available ? Physical Exam Constitutional: Alert,??mild distress. Mental Status: Oriented to person, place and time. Head: Normocephalic. Eyes: Pupils are equal, round and reactive to light. Extraocular muscles intact. Ear, Nose and Throat: Oropharynx clear, mucous membranes moist. Ears and nose without masses, lesions or deformities. Trachea midline. Neck: Supple, Full range of motion. Respiratory: Clear to auscultation. No wheezing, rales or rhonchi. Cardiovascular: S1 S2 regular. No murmurs, rubs or gallops. Gastrointestinal: Abdomen soft, tender in RUQ and epigastric area, non- distended. Normal bowel sounds. No pulsatile mass. No hepatosplenomegaly. Genitourinary: No costovertebral angle tenderness. Neurologic: Cranial nerves II-XII grossly intact. No focal neurological deficits. Flexor plantar response. Moves all extremities spontaneously. Sensation intact bilaterally. Skin: No rashes or lesions. No petechiae or purpura.?? Musculoskeletal: No cyanosis or clubbing. No gross deformities. Normal range of motion. Heme/Lymphatics/Immun: Palpation of neck reveals no swelling or tenderness of neck nodes. Psychiatric: Normal mood and affect Assessment/Plan Assessment:??The patient is a 52-year-old female with significant past medical history of Chiari malformation, cholecystectomy, hysterectomy who is presenting to the ED with worsening abdominal pain.The patient was seen and evaluated in the ED yesterday, with CT findings of peripancreatic stranding suggestive of acute interstitial edematous pancreatitis. Admission versus discharge was discussed at that time and the patient elected to go home. Since going home, patient has been unable to eat ordrink, and has been in worsening pain. She does endorse that she has significant amount of drug reactions, and does not want any strong pain medications. She rates her pain as 6-8/10 and states it isRUQ, and??epigastric.?? She describes a burning sensation,?? She denies nausea, vomiting, fever, chest pain or shortness of breath. ?? In the ED, the patient is afebrile with stable vital signs. CT scan of the abdomen demonstrates mild peripancreatic stranding suggestive of acute interstitial edematous pancreatitis, no peripancreatic fluid collection or pseudocyst, a few scattered colonic diverticula, without evidence of acute dive rticulitis, and mild, apparent circumferential bladder wall thickening, probably due to under distention. Laboratory data is significant for Lipase 203->119. Urinalysis is negative. The patient isadmitted for pancreatitis. ?? Abdominal Pain: Acute Pancreatitis: 52-year-old female with significant past medical history of Chiari malformation, cholecystectomy, hysterectomy is presenting to the ED with worsening abdominal pain. . CT scan of the abdomen demonstrates mild peripancreatic stranding suggestive of acute interstitial edematous pancreatitis, no peripancreatic fluid collection or pseudocyst, a few scattered colonic diverticula, without evidence of acute diverticulitis, and mild, apparent circumferential bladder wall thickening, probably due to under distention. Laboratory data is significant for Lipase 203->119.? -Given location of RUQ and epigastric burning sensation, will trial PPI. ?? -Keep NPO. -Consider GI consult. ?? Anxiety: Patient??is not taking any mediations for this. ?? Chiari 1 Malformation: No symptoms presently.?? Follows with her PCP for annual MRI. ?? Tobacco USE:?? Smokes about a half pack per day.?? Declines nicotine patch. ?? Diet: NPO for now. ?? DVT prophylaxis: Encourage ambulation.? Code Status: Full Code. ? Discharge Planning:?? -D'c home in 1-2 days. ? Histories Allergies Allergies ?(Active and Proposed Allergies Only) sulfa drugs? (Severity: Unknown severity, Onset: Unknown) ?Reactions: unknown clindamycin? (Severity: Unknown severity, Onset: Unknown) ?Reactions: N&V Benadryl? (Severity: Unknown severity, Onset: Unknown) ?Reactions: tardiff dyskinasia ciprofloxacin ophthalmic? (Severity: Unknown severity, Onset: Unknown) ?Reactions: swollen eye penicillins? (Severity: Unknown severity, Onset: Unknown) ?Reactions: [D]Nausea and vomiting ? Past Medical History/Problem List Active Problems??(7) Chiari [...] ??Lives with: Children, Spouse. Nutrition/Health Details:??Diet: Regular. Sexual Details:??Sexually involved in last 6 months: Yes. ??Ever been sexually involved? Yes. ??Gender of partner(s): Male. Substance Abuse Details:??Use: Never. Tobacco Details:??Current every day smoker, Other: 10-15 cig per day. ??Type: Cigarettes. Electronic Cigarette/Vaping Details:??Electronic Cigarette Use: Never. ? Psychosocial History ? Family History Mother: Chronic kidney disease; Hypertension Father (): Diabetes mellitus type II; Hypercholesterolemia ?01-JAN-2014 07:27:07<$> Pat. Grandmother: Diabetes mellitus type II Mat. Grandfather: Diabetes mellitus type II Sister (Heather): Asthma Son: Asperger's syndrome ? Medications Home Medications Aspirin (aspirin 81 mg oral tablet, chewable)?81?Milligram?1?tablet?By Mouth?Daily Atorvastatin (Lipitor 20 mg oral tablet)?1?tab(s)?20?Milligram?By Mouth?Daily at bedtime Lorazepam (LORazepam 1 mg oral tablet)?See Instructions?1 tablet By Mouth one hour before MRIand may repeat once as needed. Lorazepam (LORazepam 1 mg oral tablet)?1?tab(s)?1?Milligram?By Mouth?Daily Nitroglycerin (nitroglycerin 0.3 mg sublingual tablet)?1?tab(s)?0.3?Milligram?Sublingual?Every 5 minutes?as needed?for chest pain PEG Electrolyte Solution (NuLYTELY with Flavor Packs oral powder for reconstitution)?See Instructions?split prep method. drink one half the night before procedure at 5pm. drink second half six hours prior to procedure. ? Inpatient Medications Medications (8) Active SCHEDULED: (1) NaCl 0.9% Flush 3ml (NaCL 0.9% Flush) ??3 mL, IV Push, Every 8 hours CONTINUOUS: (0) PRN: (7) Acetaminophen 325 mg Tablet (Acetaminophen Tablet) ??650 mg, By Mouth, Every 4 hours Dextromethorphan-Guaifenesin 20 mg-200 mg/10 mL Liqu UD (Robitussin DM Liquid) ??10 mL, By Mouth, Every 4 hours Melatonin 3 mg Tablet (Melatonin Tablet) ??3 mg, By Mouth, Daily at bedtime NaCl 0.9% Flush 3ml (NaCL 0.9% Flush) ??3 mL, IV Push, Every 8 hours Polyethylene Glycol 17 Gm Powder (MiraLax Powder) ??17 Gm 1 pack/packet, By Mouth, Daily Senna 8.6 mg / Docusate 50 mg tablet (Docusate/Senna Tablet) ??1 tablet, By Mouth, 2 times a day Simethicone 80 mg Chewable Tablet (Simethicone Tablet) ??80 mg, Chew, 3 times a day ? Results Recent Labs CHEM GENERAL Sodium HEMOLYZED mmol/L ()?? 05/18/2023 19:02 Potassium HEMOLYZED mmol/L ()?? 05/18/2023 19:02 Chloride 105 mmol/L ()?? 05/18/2023 19:02 Bicarbonate Level 22 mmol/L ()?? 05/18/2023 19:02 Anion Gap Unable to calculate ()?? 05/18/2023 19:02 Glucose Level 90 mg/dL ()?? 05/18/2023 19:02 BUN 11 mg/dL ()?? 05/18/2023 19:02 Creatinine-Blood 0.6 mg/dL ()?? 05/18/2023 19:02 Estimated GFR Creatinine 111 ML/MIN/1.73 M2 ()?? 05/18/2023 19:02 Calcium 9.5 mg/dL ()?? 05/18/2023 19:02 Protein, Total HEMOLYZED Gm/dL ()?? 05/18/2023 19:02 Albumin 4.6 Gm/dL ()?? 05/18/2023 19:02 AG Ratio Unable to calculate ()?? 05/18/2023 19:02 Alkaline Phosphatase HEMOLYZED units/L ()?? 05/18/2023 19:02 Lipase 119 units/L (High)?? 05/18/2023 19:02 AST (SGOT) HEMOLYZED units/L ()?? 05/18/2023 19:02 ALT (SGPT) HEMOLYZED units/L ()?? 05/18/2023 19:02 Bilirubin, Total 0.3 mg/dL ()?? 05/18/2023 19:02 ?? UA/URINALYSIS Appear/Color, Urine LIGHT YELLOW ()?? 05/18/2023 19:12 Specific [place], Urine 1.019 ()?? 05/18/2023 19:12 pH, Urine 6.0 ()?? 05/18/2023 19:12 Albumin, Urine NEGATIVE ()?? 05/18/2023 19:12 Glucose, Urine NEGATIVE ()?? 05/18/2023 19:12 Ketones, Urine NEGATIVE ()?? 05/18/2023 19:12 Bilirubin, Urine NEGATIVE ()?? 05/18/2023 19:12 Hemoglobin, Urine NEGATIVE ()?? 05/18/2023 19:12 Nitrite, Urine NEGATIVE ()?? 05/18/2023 19:12 Leukocyte, Urine NEGATIVE ()?? 05/18/2023 19:12 Urobilinogen NORMAL mg/dL ()?? 05/18/2023 19:12 WBC's, Urine NONE SEEN /HPF ()?? 05/18/2023 19:12 RBC's, Urine 1 /HPF ()?? 05/18/2023 19:12 Squamous Epith 2 /HPF ()?? 05/18/2023 19:12 Mucus SLIGHT /LPF ()?? 05/18/2023 19:12 Hold Urine Culture Testing available 48 hours from time of collection. ()?? 05/18/2023 19:12 ?? URINE OTHER Est Creatinine Clearance 89.55 mL/min ()?? 05/18/2023 20:12 ?? VIROLOGY COVID-19 by RT-PCR NEGATIVE ()?? 05/18/2023 19:12 ? Hospital Progress note * Magui wSain RN: PERFORM, SIGN, VERIFY Event Display: Progress Note Hospital Authored Date: Patient: FRANCOIS BOYD Age: 52 years Sex: Female : 1970 Associated Diagnoses: None Author: Magui Swain RN Findings Problem Related to Alteration in Gastrointestinal : Alteration in Gastrointestinal Func/new 05/19/2023 19:00 EDT Alteration in GI status Related to Pancreatitis Goals & Outcomes, Gastrointestinal Establish a regular pattern of elimination for pt, Nutritional intake is adequate for metabolic needs, Pt will achieve normal/improved fluid balance, Pt will have a bowel movement prior to discharge, Pt will maintain adequate GI function appropriate for pt, Ptwill maintain normal elimination patterns, Pt will resume/maintain adequate hemodynamic status, Pt will tolerate age appropriate diet prior to discharge Interventions, Gastrointestinal Assess/monitor abdomen for distention, tenderness, Assess/monitor bowel pattern, bowel sounds, flatus, Assess/monitor number of bowel movements, Assess/monitor pt for nausea, vomiting, Assess/monitor intake & output, Assess if pt tolerating diet BH Goals/Interventions, Gastrointestinal Yes Gastrointestinal, Problem Start 05/19/2023 13:29 Reviewed plan with, Gastrointestinal Patient Patient Progression, Gastrointestinal Pt progressing according to plan Comment: Gastrointestinal Pt tolerating diet. Denies pain. . Narrative/Incidental Pt A&OX4, pleasant and cooperative. In report I was told throughout the day, patient wanted to go home and then would change her mind and stay because she didn't want to go home and have pain. I was told this cycle happened a few times and the last time patient stated she wanted to go home, Mercedes (day RN) paged her Dr but the doctor had left for the day so she paged covering MD and they did not want to discharge her. Pt rang for me and we discussed what Mercedes had said and pt was upset saying we weren't doing anything for her. She stated she was tolerating clear fluids and she couldn't have anything to eat because her diet was clears. Pt then told me she is clasorphobic. She wanted to know how to get out here if there was a fire. I showed her and she was calmer. I offered her prn Ativan for which she declined. She also declined Melatonin. Pt had a shower and stated she felt much better after the shower and she was going to get some sleep. Pt denies any pain, N/V. Will continue to monitor. . Discharge Information Case Management Discharge Plan : Case Management Discharge Plan Data 05/18/2023 8:29 EDT Discharge Level of Care at Discharge Home/[facility] * Elisa RONQUILLO, Carina: PERFORM Event Display: Progress Note Hospital Authored Date: [id number] Patient: ??OLIVER, FRANCOIS ? Age:??52 Years?Sex:??Female?:??1970?? Subjective Patient was seen and examined at bedside.?? started on IV??fluids. on clear liquid diet as well. ? Review of Systems All systems were reviewed and found to be negative except for the ones mentioned in HPI. Objective Vital Signs?? Temperature: 98.3 DegF (05/19/23 10:16:00) Temperature Route: Oral (05/19/23 10:16:00) Pulse Rate:??54 bpm??Low (05/19/23 10:16:00) Respiratory Rate:??13 br/min??Low (05/19/23 10:16:00) Systolic Blood Pressure: 109 mm Hg (05/19/23 10:16:00) Diastolic Blood Pressure:??50 mm Hg??Low (05/19/23 10:16:00) Blood pressure sites: Arm, right (05/19/23 10:16:00) Mean Arterial Pressure: 65 mm Hg (05/19/23 06:12:00) Pulse Pressure: 59 mm Hg (05/19/23 10:16:00) Oxygen Saturation: 99 % (05/19/23 10:16:00) Mode of Delivery (Oxygen): Room air (05/19/23 10:16:00) Early Warning Score: 0 (05/19/23 10:17:37) ? Intake/Output? No Data Available ? Physical Exam General: Lying comfortably in bed, no evident distress Cardiac: S1 + S2 + 0, no murmurs heard Respiratory: CTA, No wheezes, Rales or crackles heard Abdomen: soft, nondistended, nontender Extremities: No edema or cyanosis present Neurological: AO X 3 , cranial nerves grossly normal?? Results Recent Labs BLOOD COUNT & DIFF WBC 6.8 k/mm3 ()?? 05/19/2023 06:30 RBC 4.56 m/mm3 ()?? 05/19/2023 06:30 Hgb 13.6 Gm/dL ()?? 05/19/2023 06:30 Hct 42.0 % ()?? 05/19/2023 06:30 MCV 92.1 femtoliters ()?? 05/19/2023 06:30 MCH 29.8 pg ()?? 05/19/2023 06:30 MCHC 32.4 g/dL (Low)?? 05/19/2023 06:30 Platelet Count 220 k/mm3 ()?? 05/19/2023 06:30 RDW-SD 44.2 femtoliters ()?? 05/19/2023 06:30 MPV 10.7 femtoliters ()?? 05/19/2023 06:30 Nucleated RBC (Automated) 0.0 #/100 WBC'S ()?? 05/19/2023 06:30 Abs. NRBC 0.0 k/mm3 ()?? 05/19/2023 06:30 ?? CHEM GENERAL Sodium 143 mmol/L ()?? 05/19/2023 06:30 Potassium 4.0 mmol/L ()?? 05/19/2023 06:30 Chloride 108 mmol/L (High)?? 05/19/2023 06:30 Bicarbonate Level 23 mmol/L ()?? 05/19/2023 06:30 Anion Gap 12 ()?? 05/19/2023 06:30 Glucose Level 82 mg/dL ()?? 05/19/2023 06:30 BUN 10 mg/dL ()?? 05/19/2023 06:30 Creatinine-Blood 0.6 mg/dL ()?? 05/19/2023 06:30 Estimated GFR Creatinine 110 ML/MIN/1.73 M2 ()?? 05/19/2023 06:30 Calcium 8.8 mg/dL ()?? 05/19/2023 06:30 Protein, Total HEMOLYZED Gm/dL ()?? 05/18/2023 19:02 Albumin 4.6 Gm/dL ()?? 05/18/2023 19:02 AG Ratio Unable to calculate ()?? 05/18/2023 19:02 Alkaline Phosphatase HEMOLYZED units/L ()?? 05/18/2023 19:02 Lipase 119 units/L (High)?? 05/18/2023 19:02 AST (SGOT) HEMOLYZED units/L ()?? 05/18/2023 19:02 ALT (SGPT) HEMOLYZED units/L ()?? 05/18/2023 19:02 Bilirubin, Total 0.3 mg/dL ()?? 05/18/2023 19:02 ?? UA/URINALYSIS Appear/Color, Urine LIGHT YELLOW ()?? 05/18/2023 19:12 Specific [place], Urine 1.019 ()?? 05/18/2023 19:12 pH, Urine 6.0 ()?? 05/18/2023 19:12 Albumin, Urine NEGATIVE ()?? 05/18/2023 19:12 Glucose, Urine NEGATIVE ()?? 05/18/2023 19:12 Ketones, Urine NEGATIVE ()?? 05/18/2023 19:12 Bilirubin, Urine NEGATIVE ()?? 05/18/2023 19:12 Hemoglobin, Urine NEGATIVE ()?? 05/18/2023 19:12 Nitrite, Urine NEGATIVE ()?? 05/18/2023 19:12 Leukocyte, Urine NEGATIVE ()?? 05/18/2023 19:12 Urobilinogen NORMAL mg/dL ()?? 05/18/2023 19:12 WBC's, Urine NONE SEEN /HPF ()?? 05/18/2023 19:12 RBC's, Urine 1 /HPF ()?? 05/18/2023 19:12 Squamous Epith 2 /HPF ()?? 05/18/2023 19:12 Mucus SLIGHT /LPF ()?? 05/18/2023 19:12 Hold Urine Culture Testing available 48 hours from time of collection. ()?? 05/18/2023 19:12 ?? URINE OTHER Est Creatinine Clearance 89.55 mL/min ()?? 05/18/2023 20:12 ?? VIROLOGY COVID-19 by RT-PCR NEGATIVE ()?? 05/18/2023 19:12 ? Assessment/Plan Diagnoses Pancreatitis ??(K85.90) ? Abdominal Pain: Acute Pancreatitis: Patient is a 52-year-old female with significant past medical history of Chiari malformation, cholecystectomy, hysterectomy is presenting to the ED with worsening abdominal pain. CT scan of the abdomen demonstrates mild peripancreatic stranding suggestive of acute interstitial edematous pancreatitis, no peripancreatic fluid collection or pseudocyst, a few scattered colonic diverticula, without evidence of acute diverticulitis, and mild, apparent circumferential bladder wallthickening, probably due to under distention. Laboratory data is significant for Lipase 203->119.? Given location of RUQ and epigastric burning sensation, was started on PPI Was NPO started on IV Fluids. also started on clear Liquid Diet ? Anxiety: Patient??is not taking any mediations for this. ?? Chiari 1 Malformation: No symptoms presently.?? Follows with her PCP for annual MRI. ?? Tobacco USE:?? Smokes about a half pack per day.?? Declines nicotine patch. ?? Diet:?? clear liquid diet. ?? DVT prophylaxis: Encourage ambulation. ?? Code Status: Full Code. ? Discharge Planning:?? D'c home in 1-2 days. ?Order Date/Time ??Order Action ??Order Name ??Order Detail ??05/19/2023 08:55 ??Order ??NaCL 0.9% (1000 mL) Cont IV 1,000 mL ??125 mL/hr, IV Infusion ??05/19/2023 08:55 ??Order ??Clear Liquid Diet ??Clear Liquids, Start: now, Progress Diet: No, When: Not Applicable, 05/19/23 8:55:00 EDT ??05/19/2023 08:55 ??Discontinue ??NPO ??No Exceptions, Start: now, Progress Diet: No, When: Not Applicable, 05/18/23 22:10:00 EDT ??05/19/2023 07:33 ??Order ??Change Attending, MD/DO ??Carina Pérez MD, 05/19/23 7:33:00 EDT ??05/19/2023 07:33 ??Discontinue ??Covering Physician/STACI Beeper ??Covering Provider: Dee Dee Stein NP, Pager Number: [phone], 05/18/23 23:17:00 EDT ? Note * Radha March RN: PERFORM Event Display: Discharge/Transfer Note Hospital Authored Date: Nursing Discharge Note Entered On: 05/20/2023 10:40 EDT Performed On: 05/20/2023 10:40 EDT by Radha March RN Nursing Discharge Note 2 Discharge Time : 05/20/2023 10:40 EDT Discharge Level of Care at Discharge : Home/Usp/Foster Care Patient Left Unit Via : Wheelchair Patient Accompanied Off Unit with : Responsible adult DC Instructions Provided & Signed by Pt : Yes Patient Understands D/C Instructions : Yes Verbalized Understanding of D/C Plan By : Patient Patient Instructions Discharge Signed : Yes Did Pt have Specialty Bed or Wound Vac : No Radha March RN - 05/20/2023 10:40 EDT * Jono Miles MD: PERFORM, MODIFY Event Display: Discharge/Transfer Note Hospital Authored Date: Patient: ??OLIVER, FRANCOIS ? Age:??52 Years?Sex:??Female?:??1970?? Patient Information Discharge Location: Primary Care Physician: Priscila Rae MD Admit Date/Time: 05/18/23 22:10 Discharge Disposition Discharge Disposition: Home: No Services Discharge Diagnosis Pancreatitis (K85.90) ?? _ Discharge Medications Aspirin (aspirin 81 mg oral tablet, chewable)?81?Milligram?1?tablet?By Mouth?Daily Atorvastatin (Lipitor 20 mg oral tablet)?1?tab(s)?20?Milligram?By Mouth?Daily at bedtime Lorazepam (LORazepam 1 mg oral tablet)?See Instructions?1 tablet By Mouth one hour before MRIand may repeat once as needed. Lorazepam (LORazepam 1 mg oral tablet)?1?tab(s)?1?Milligram?By Mouth?Daily Nitroglycerin (nitroglycerin 0.3 mg sublingual tablet)?1?tab(s)?0.3?Milligram?Sublingual?Every 5 minutes?as needed?for chest pain Pantoprazole (Protonix 40 mg oral delayed release tablet)?40?Milligram?By Mouth?Daily?for 30?Days PEG Electrolyte Solution (NuLYTELY with Flavor Packs oral powder for reconstitution)?See Instructions?split prep method. drink one half the night before procedure at 5pm. drink second half six hours prior to procedure. ? Medications Started none Medications Discontinued none Doses Changed none Allergies Allergies ?(Active and Proposed Allergies Only) sulfa drugs? (Severity: Unknown severity, Onset: Unknown) ?Reactions: unknown clindamycin? (Severity: Unknown severity, Onset: Unknown) ?Reactions: N&V Benadryl? (Severity: Unknown severity, Onset: Unknown) ?Reactions: tardiff dyskinasia ciprofloxacin ophthalmic? (Severity: Unknown severity, Onset: Unknown) ?Reactions: swollen eye penicillins? (Severity: Unknown severity, Onset: Unknown) ?Reactions: [D]Nausea and vomiting ? Future Appointments Friday 3:40 PM EDT ?? With: Butch RONQUILLO, Priscila Rubalcava Where: Primary Care [address] [address]- Status: Pending Friday 1:30 PM EST ?? Where: [facility] Status: Pending Hospital Course ?? Patient is a 52-year-old female with significant past medical history of Chiari malformation, cholecystectomy, hysterectomy is presenting to the ED with worsening abdominal pain.?? CT abdomen pelvis showed mild peripancreatic fat stranding concerning for acute interstitial??pancreatitis.?? Patient also complained of epigastric burning sensation because of which??she was started on Protonix??with concern for GERD/dyspepsia.?? Patient was kept on??bowel rest??with n.p.o. status along with IV fluids. ??Her diet was gradually advanced to clear liquid diet followed by??low-fat diet.?? Patient did have mild elevation in lipase of 203 on presentation which improved to 119.?? On the day of discharge on 05/20 patient is resting comfortably in the bed. ??She denies any??abdominal pain or tenderness currently.?? She did have 1 episode of watery diarrhea on 05/20.?? Denies nausea/vomiting. ??Tolerated??low-fat diet on 05/20.?? She will be discharged home??with outpatient follow-up with her primary care physician in about 1 week of discharge. ?? Abdominal Pain: Acute Pancreatitis: GERD/dyspepsia Was managed with bowel rest, IV fluids,??gradual advancement of diet. ??Currently tolerating low-fat diet. Was started on Protonix 40 mg daily on disposition. ?? Anxiety: Patient??is not taking any mediations for this. ?? Chiari 1 Malformation: No symptoms presently.?? Follows with her PCP for annual MRI. ?? Tobacco USE:?? Smokes about a half pack per day.?? Declines nicotine patch??during hospital stay. ??Patient was counseled for smoking cessation. ?? Diet:??Low-fat diet??on disposition ?? DVT prophylaxis: Encourage ambulation. ?? Code Status: Full Code. ? Discharge-discharge home on 05/20/2021 3 Objective as mentioned above. ? Measurements?? Height: 158 cm (05/20/23) Weight: 78 kg (05/19/23) Dry Weight: 78 kg (05/19/23) Body Mass Index:??31.24 kg/m2??Critical (05/19/23) ? Vital Signs?? Temperature: 97.6 DegF (05/20/23 07:12:00) Temperature Route: Oral (05/20/23 07:12:00) Pulse Rate:??52 bpm??Low (05/20/23 07:12:00) Respiratory Rate: 18 br/min (05/20/23 07:12:00) Systolic Blood Pressure: 130 mm Hg (05/20/23 07:12:00) Diastolic Blood Pressure:??51 mm Hg??Low (05/20/23 07:12:00) Blood pressure sites: Arm, left (05/20/23 07:12:00) Mean Arterial Pressure: 77 mm Hg (05/20/23 07:12:00) Pulse Pressure: 79 mm Hg (05/20/23 07:12:00) Oxygen Saturation: 99 % (05/20/23 07:12:00) Mode of Delivery (Oxygen): Room air (05/20/23 07:12:00) Early Warning Score: 2 (05/20/23 07:15:18) ? Perfusion Assessment Cardiovascular: WNL (05/19/23 19:00:00) Cardiovascular Assessment Status: Unchanged from recorder's assessment (05/19/23 10:16:00) ? Basic ADLs Ambulatory devices needed: None (05/19/23) ? . Physical Exam Constitutional: Alert, in no acute [...] No rash. Psychiatric: Normal mood and affect Pending Results Add On Lab Order ordered on 05/20/2023 Follow-Up Appointments Added Follow Up ?Time Frame ?Comments Priscila Rae MD?1 week: call to discuss follow up visit?Follow-up with your primary care physician in about 1 week of discharge. Patient Instructions New medicine Pantoprazole 40 mg daily Continue taking rest of her home medicines as you are doing prior to admission. ?? Follow-up Follow-up with your primary care physician in about 1 week of discharge. ?? Recommendations Low-fat diet Post Discharge Care Discharge ?HOme this AM, ??05/20/23 9:54:00 EDT Results Discharge Labs BLOOD COUNT & DIFF WBC 6.5 k/mm3 ()?? 05/20/2023 01:12 RBC 4.24 m/mm3 ()?? 05/20/2023 01:12 Hgb 12.5 Gm/dL ()?? 05/20/2023 01:12 Hct 39.2 % ()?? 05/20/2023 01:12 MCV 92.5 femtoliters ()?? 05/20/2023 01:12 MCH 29.5 pg ()?? 05/20/2023 01:12 MCHC 31.9 g/dL (Low)?? 05/20/2023 01:12 Platelet Count 212 k/mm3 ()?? 05/20/2023 01:12 RDW-SD 43.8 femtoliters ()?? 05/20/2023 01:12 MPV 10.8 femtoliters ()?? 05/20/2023 01:12 Nucleated RBC (Automated) 0.0 #/100 WBC'S ()?? 05/20/2023 01:12 Abs. NRBC 0.0 k/mm3 ()?? 05/20/2023 01:12 ?? CHEM GENERAL Sodium 140 mmol/L ()?? 05/20/2023 01:12 Potassium 4.3 mmol/L ()?? 05/20/2023 01:12 Chloride 107 mmol/L ()?? 05/20/2023 01:12 Bicarbonate Level 26 mmol/L ()?? 05/20/2023 01:12 Anion Gap 7 ()?? 05/20/2023 01:12 Glucose Level 83 mg/dL ()?? 05/20/2023 01:12 BUN 7 mg/dL ()?? 05/20/2023 01:12 Creatinine-Blood 0.8 mg/dL ()?? 05/20/2023 01:12 Estimated GFR Creatinine 97 ML/MIN/1.73 M2 ()?? 05/20/2023 01:12 Calcium 8.9 mg/dL ()?? 05/20/2023 01:12 Protein, Total HEMOLYZED Gm/dL ()?? 05/18/2023 19:02 Albumin 4.6 Gm/dL ()?? 05/18/2023 19:02 AG Ratio Unable to calculate ()?? 05/18/2023 19:02 Alkaline Phosphatase HEMOLYZED units/L ()?? 05/18/2023 19:02 Lipase 64 units/L (High)?? 05/20/2023 01:12 AST (SGOT) HEMOLYZED units/L ()?? 05/18/2023 19:02 ALT (SGPT) HEMOLYZED units/L ()?? 05/18/2023 19:02 Bilirubin, Total 0.3 mg/dL ()?? 05/18/2023 19:02 ?? UA/URINALYSIS Appear/Color, Urine LIGHT YELLOW ()?? 05/18/2023 19:12 Specific [place], Urine 1.019 ()?? 05/18/2023 19:12 pH, Urine 6.0 ()?? 05/18/2023 19:12 Albumin, Urine NEGATIVE ()?? 05/18/2023 19:12 Glucose, Urine NEGATIVE ()?? 05/18/2023 19:12 Ketones, Urine NEGATIVE ()?? 05/18/2023 19:12 Bilirubin, Urine NEGATIVE ()?? 05/18/2023 19:12 Hemoglobin, Urine NEGATIVE ()?? 05/18/2023 19:12 Nitrite, Urine NEGATIVE ()?? 05/18/2023 19:12 Leukocyte, Urine NEGATIVE ()?? 05/18/2023 19:12 Urobilinogen NORMAL mg/dL ()?? 05/18/2023 19:12 WBC's, Urine NONE SEEN /HPF ()?? 05/18/2023 19:12 RBC's, Urine 1 /HPF ()?? 05/18/2023 19:12 Squamous Epith 2 /HPF ()?? 05/18/2023 19:12 Mucus SLIGHT /LPF ()?? 05/18/2023 19:12 Hold Urine Culture Testing available 48 hours from time of collection. ()?? 05/18/2023 19:12 ?? URINE OTHER Est Creatinine Clearance 67.16 mL/min ()?? 05/20/2023 02:52 ? VIROLOGY COVID-19 by RT-PCR NEGATIVE ()?? 05/18/2023 19:12 ? Microbiology ?? COVID-19 (Novel Coronavirus), Rapid PCR?? Completed?? Source: Nasal Body Site: Nose Collected Dt/Tm: 05/18/2023 18:58 Last Updated Dt/Tm: 05/18/2023 19:57 ? 40??minutes spent on discharge * Radha March RN: PERFORM Event Display: Patient Education/Instruction Authored Date: [id number] Inpatient Adult Discharge Instructions [address] [address] Name: FRANCOIS CEDILLOULX : 1970 Visit: 05/18/2023 22:10:00 Current Date: 05/20/2023 10:27 Account: [id number] Inpatient Adult Discharge Instructions We would like [...] and their families. Surveys are administered by [employer]. ?? If further treatment with your primary care physician or another doctor is recommended, it is important for you to keep the appointment. Call your primary care physician or return to the Emergency Department immediately if your condition worsens, fails to improve, or new symptoms develop. If you need to find a doctor, you can call [facility] for a referral at [phone] or toll free at [phone] [email or web address] [phone]) or log in to [email or web address] ?? You can view and manage your care through the patient portal or by using a health care staci of your choosing. [employer] is a website that allows you to securely view your medical information including your hospital discharge summary, office visit summaries, medications and follow-up visits. You can also request appointments, renew medications, and request access to your medical information using a health care staci of your choosing, or just ask a question. You can enroll at [email or web address] or register during your next office visit. You have been discharged from [facility], Patient Care Unit: S3. If you have any questions regarding these instructions after you leave, please call us and we will be happy to assist you. [facility] Your Care Team Attending Physician Jono Miles MD Discharging Providers Jono Miles MD Reason for Admission General medical Your Diagnosis Pancreatitis Tests Performed Below is a partial list of the tests performed during your hospitalization. You may have had other tests and procedures not included in this list. Please discuss all test results with your provider. Basic Metabolic Panel BUN Calcium Level CBC Comprehensive Metabolic Panel COVID-19 (Novel Coronavirus), Rapid PCR Creatinine Electrolytes Glucose Level LIPASE Urinalysis w/hold for Urine Culture Primary Care Provider Priscila Rae MD Advance Directive Health Care Proxy on File No Patient refuses to discuss Discharge Vitals Temperature: 97.6 DegF Height: 158 cm Pulse Rate:??52 bpm??Low Weight: 78 kg Respiratory Rate: 18 br/min Body Mass Index:??31.24 kg/m2??Critical Systolic Blood Pressure: 130 mm Hg Body surface area: 1.85 Diastolic Blood Pressure:??51 mm Hg??Low ?? Oxygen Saturation: 99 % ?? Studies Pending All tests and labs ordered during this hospital stay have been completed unless listed below. Please discuss all pending results with your provider listed above in these instructions. ?? Add On Lab Order What to do next Instructions From Your Doctor New medicine Pantoprazole 40 mg daily Continue taking rest of her home medicines as you are doing prior to admission. ?? Follow-up Follow-up with your primary care physician in about 1 week of discharge. ?? Recommendations Low-fat diet Discharge Orders Scheduled Follow-Up Appointments Friday 3:40 PM EDT ?? With: Priscila Rae MD Where: Primary Care [address] [address]- Status: Pending Friday 1:30 PM EST ?? Where: [facility] Status: Pending You Need to Schedule the Following Appointments Follow Up with??Priscila Rae MD When:??Within 1 week: call to discuss follow up visit Why: Follow-up with your primary care physician in about 1 week of discharge. Where: [address] [place] [address] [place] [address]- Discharge Medications OLIVERFRANCOIS Kapoor :1970 Visit Date:05/18/2023 Medications: Please continue your medications until treatment is completed or stopped by your provider. Medications not listed below should be discontinued. Discuss any questions related to medications with your provider. What How Much When Why Instructions Next Dose New Pantoprazole (Protonix 40 mg oral delayed releasetablet) 40 Milligram Oral Daily Duration: 30 Days Pickup at [facility]/pharmacy #[id number] 05/21?? AM Unchanged Aspirin (aspirin 81 mg oral tablet, chewable) 1 tab(s) Oral Daily as prescribed Unchanged Atorvastatin (Lipitor 20 mg oral tablet) 1 tab(s) Oral Daily at Bedtime as prescribed Unchanged Lorazepam (LORazepam 1 mg oral tablet) See instructions Generalized anxiety disorder 1 tablet By Mouth one hour before MRI and may repeat once as needed. ?? as prescribed Unchanged Lorazepam (LORazepam 1 mg oral tablet) 1 tab(s) Oral Daily as prescribed Unchanged Nitroglycerin (nitroglycerin 0.3 mg sublingual tablet) 1 tab(s) Sublingual Every 5 minutes as needed for for chest pain as prescribed Pharmacy Information [facility]/pharmacy #[id number]: [id number] [place] [phone] Test Results Below is a partial list of the most recent Laboratory test results done prior to this discharge. You may have had other tests and procedures not included in this list. Please discuss all test resultswith your provider. Est Creatinine Clearance - 67.16 mL/min (05/20/2023) Basic Metabolic Panel (05/19/2023) ???Sodium - 143 mmol/L???Potassium - 4.0 mmol/L???Chloride - 108 mmol/L???Bicarbonate Level - 23 mmol/L???Anion Gap - 12???Glucose Level - 82 mg/dL???BUN - 10 mg/dL???Creatinine-Blood - 0.6 mg/dL???Estimated GFR Creatinine - 110 ML/MIN/1.73 M2???Calcium - 8.8 mg/dL BUN (05/20/2023) ???BUN - 7 mg/dL Calcium Level (05/20/2023) ???Calcium - 8.9 mg/dL CBC (05/20/2023) ???WBC - 6.5 k/mm3???RBC - 4.24 m/mm3???Hgb - 12.5 Gm/dL???Hct - 39.2 %???MCV - 92.5 femtoliters???MCH - 29.5 pg???MCHC - 31.9 g/dL???Platelet Count - 212 k/mm3???RDW-SD - 43.8 femtoliters???MPV - 10.8 femtoliters???Nucleated RBC (Automated) - 0.0 #/100 WBC'S???Abs. NRBC - 0.0 k/mm3 Comprehensive Metabolic Panel (05/18/2023) ???Sodium - HEMOLYZED???Potassium - HEMOLYZED???Chloride - 105 mmol/L???Bicarbonate Level - 22 mmol/L???Anion Gap - Unable to calculate???Glucose Level - 90 mg/dL???BUN - 11 mg/dL???Creatinine-Blood - 0.6 mg/dL???Estimated GFR Creatinine - 111 ML/MIN/1.73 M2???Calcium - 9.5 mg/dL???Protein, Total -HEMOLYZED???Albumin - 4.6 Gm/dL???AG Ratio - Unable to calculate???Alkaline Phosphatase - HEMOLYZED???AST (SGOT) - HEMOLYZED???ALT (SGPT) - HEMOLYZED???Bilirubin, Total - 0.3 mg/dL COVID-19 (Novel Coronavirus), Rapid PCR (05/18/2023) ???COVID-19 by RT-PCR - NEGATIVE Creatinine (05/20/2023) ???Creatinine-Blood - 0.8 mg/dL???Estimated GFR Creatinine - 97 ML/MIN/1.73 M2 Electrolytes (05/20/2023) ???Sodium - 140 mmol/L???Potassium - 4.3 mmol/L???Chloride - 107 mmol/L???Bicarbonate Level - 26 mmol/L???Anion Gap - 7 Glucose Level (05/20/2023) ???Glucose Level - 83 mg/dL LIPASE (05/20/2023) ???Lipase - 64 units/L Urinalysis w/hold for Urine Culture (05/18/2023) ???Appear/Color, Urine - LIGHT YELLOW???Specific [place], Urine - 1.019???pH, Urine - 6.0???Albumin, Urine - NEGATIVE???Glucose, Urine - NEGATIVE???Ketones, Urine - NEGATIVE???Bilirubin, Urine - NEGATIVE???Hemoglobin, Urine - NEGATIVE???Nitrite, Urine - NEGATIVE???Leukocyte, Urine - NEGATIVE???Urobi linogen - NORMAL???WBC's, Urine - NONE SEEN???RBC's, Urine - 1 /HPF???Squamous Epith - 2 /HPF???Mucus - SLIGHT???Hold Urine Culture - Testing available 48 hours from time of collection. Allergies (NKA means No Known Allergies) Benadryl??(tardiff dyskinasia) ciprofloxacin ophthalmic??(swollen eye) clindamycin??(N&V) penicillins??([D]Nausea and vomiting) sulfa drugs??(unknown) Problems Active Problems??(7) Chiari I malformation?? Generalized anxiety disorder?? Hypercholesterolemia?? Hyperglycemia?? Obese class I?? Sleep apnea?? Tobacco abuse?? Education Materials Below is the list of Educational Leaflet Providered with your Discharge Instructions. Pancreatitis?? Understanding Pancreatitis?? Discharge Instructions for Acute Pancreatitis?? Valuables and Belongings I fully understand and agree that [facility] accepts no responsibility for all my [...] to send valuables and belongings home. ?? Review of Valuable and Belonging List: With patient, With witness Date for Pt to Sign Valuables/Belongings: 05/20/23 07:12:00 ?? Other Discharge Information ? Pulmonary Rehab [...] are strongly encouraged to quit. Please call [facility] at [phone] or [phone] ([phone]) or log in to [email or web address] for referrals to smoking cessation programs. ?? 317 Suicide & Crisis Lifeline is available 19/05 if you or someone you know needs to find a reason to keep living. By calling 093 you'll be connected to a skilled, trained counselor at a crisis center in your area. INPATIENT DISCHARGE INSTRUCTIONS SIGNATURE PAGE FRANCOIS BOYD Location:[facility] Registration Date and Time:05/18/2023 22:10 EDT Primary Care Physician: Priscila Rae MD, Attending Physician: Jono Miles MD, I FRANCOIS BOYD, have received the above patient education materials/instructions and have verbalized understanding. If ambulance or transport services are being used I further acknowledge being given a choice of service. ?? If you need to contact me, please call me at this number: . Patient/Breast Splitter Name: Patient/Breast Splitter Signature: Relationship to Patient: Witness Name/Signature: Date: * Radha March RN: PERFORM Event Display: Patient Education Leaflets Authored Date: [id number] Pancreatitis ?? [id number] Pancreatitis The pancreas is an organ in the??belly (abdomen). It secretes hormones and digestive juices (enzymes) into the stomach to aid with digestion and blood sugar levels. Pancreatitis is an inflammation ofthe pancreas. In many cases, it's caused when the duct that connects the pancreas and gallbladder is blocked by a gallstone.??Heavy alcohol use is another major cause.??Less common causes can includemedicines, trauma, certain medical procedures, viruses, and toxins. Sometimes the cause of pancreatitis can't be found.??Genetic testing is sometimes done in those cases, especially if there is a family history of pancreatic disease. Symptoms of pancreatitis include: ??? Severe abdominal pain? Nausea and vomiting ??? Severe indigestion ??? Racing heart ??? Fever If the pancreatitis becomes a chronic problem, diarrhea, chronic pain, weight loss, and poor nutrition can result. At first, pancreatitis may be treated in the hospital.??It may be diagnosed by history, exam, bloodtests, and sometimes imaging studies.?? While in the hospital, fluids and medicines can be provided. The underlying cause of the problem must also be treated to prevent further problems. If gallstones are the cause, you and your healthcare provider can discuss choices for treating them.??This oftenresults in gallbladder surgery. Sometimes another test must be done to clear the drainage ducts of a blocked gallstones.??If alcohol is the cause, talk with your healthcare provider about a program to help you stop drinking. Home care ??? Don't drink alcohol. ??? Rest in bed or sit up in a chair until you feel better. ??? Take medicines as prescribed. If you were given??an antibiotic for infection,??take it until it's gone, even if you feel better. Let your healthcare provider know if you vomit up your medicine. Tips for eating and drinking: ??? Try sipping small amounts of clear liquids often to prevent dehydration.? Your provider may advise clear liquids only for 1 or 2 days. This is to rest the pancreas. ??? When you start eating again, start with small amounts. Have small, more frequent meals rather than larger meals.??Low-fat meals are best. Fruits, vegetables, and whole grains are good choices. Stay away from fried and greasy foods. ?? Follow-up care Follow up with your healthcare provider as advised. ?? When to get medical care Call your healthcare provider right away if any of these occur: ??? Pain that continues or gets worse ??? Repeated vomiting ??? Dizziness, weakness ??? Fever of 100.4?? F (38?? C) or higher, or as advised by your provider ??? Severe muscle cramps ??? Yellowish coloring of the skin and eyes (jaundice) ?? Call 911 Call 911 if you have any of the following: ??? Vomiting blood or large amounts of blood in stool ??? Seizure ??? Loss of consciousness ?? Last Reviewed Date: 2022 ?? 2095-0244 [employer]. All rights reserved. This information is not intended as a substitute for professional medical care. Always follow your healthcare professional's instructions. ?? * Radha March RN: PERFORM Event Display: Patient Education Leaflets Authored Date: [id number] Understanding Pancreatitis ?? 98922 Understanding Pancreatitis If your pancreas suddenly becomes irritated or inflamed, you have acute pancreatitis. Acute pancreatitis is often very painful. Emergency medical treatment is usually needed. Chronic pancreatitis is a condition where your pancreas remains inflamed. It can lead to pain and other complications.?? Symptoms of acute pancreatitis Symptoms include: ??? Severe pain in your upper belly radiating??to your back ??? Nausea and vomiting ??? Belly swelling and tenderness ??? Fever ??? Rapid pulse ??? Shallow, fast breathing ?? Treating acute pancreatitis If you have acute pancreatitis, you may be in the hospital for a few days. For part of this time, you likely won???t be allowed to eat or drink. This lets your pancreas rest and heal. If your pancreatitis is severe, you may get nutrition and fluids through a feeding tube inserted into your belly. Medicines are given to help ease any pain. ?? Causes of pancreatitis Gallstones are one of the most common causes of pancreatitis. These hard stones form in the gallbladder, an organ located near the pancreas. These 2 organs share a passage into the small intestine called the common bile duct. But fluid can't leave the pancreas if gallstones block this duct. The fluid backs up and causes pancreatitis. Alcohol is also a very common cause of pancreatitis. Certain medicines, injury, and infection can also cause pancreatitis. Problems with the structure of the pancreas may also be a cause. There are also genetic problems that can cause pancreatitis.? If you have chronic pancreatitis If the pancreas stays inflamed for a long time, chronic pancreatitis may result. Common symptoms include diarrhea, weight loss, and belly pain. Possible complications of chronic pancreatitis include: ??? Diabetes ??? Not absorbing enough nutrients (malnutrition) ??? Pancreatic cancer (rare) ??? Chronic diarrhea ??? Chronic pain Treatment for chronic pancreatitis includes: ??? Medicines to help the pancreas work (enzymes) and to manage pain ??? Dietary changes ??? Stop smoking ??? Treatment for gallstones ??? Don't drink alcohol. The most important thing you can do is to avoid alcohol and smoking to help manage this disease.? Last Reviewed Date: 2021 ?? [employer]. All rights reserved. This information is not intended as a substitute for professional medical care. Always follow your healthcare professional's instructions. ?? * Radha March RN: PERFORM Event Display: Patient Education Leaflets Authored Date: [id number] Discharge Instructions for Acute Pancreatitis ?? [id number] Discharge Instructions for Acute Pancreatitis You have been diagnosed with acute pancreatitis. The pancreas is an organ that makes digestive juices and hormones. Your pancreas is inflamed or swollen. Gallstones are a common cause of pancreatitis. These hard stones form in the gallbladder. The gallbladder shares a tube with the pancreas into the small intestine. If gallstones block this tube, fluid can???t leave the pancreas. The fluid backs up and causes redness and swelling (inflammation).??Alcohol use is another very common cause of pancreatitis. There are other causes. Make sure you understand the cause of your pancreatitis. Then you can try to stop it from happening again. Immediate home care ??? Find someone to drive you to appointments. Acute pancreatitis is a serious condition, and you should never drive if you have symptoms. ??? Stop drinking if your illness was caused by alcohol. o Ask your healthcare provider about alcohol abuse programs and support groups suchas Alcoholics Anonymous. o Ask your provider about prescription medicines that can help you stop drinking. o Tell your provider about the alcohol withdrawal symptoms you have when you stop drinking. This is very important. You may need close medical supervision and special medicines??when you stop drinking. This will depend on your alcohol withdrawal history.? Take your medicines exactly as directed. Don???t skip doses. ??? Eat a low-fat diet. Ask your provider for menus and other diet information. ??? Stop smoking. Smoking increases problems if you have pancreatitis. ??? Learn to take your own pulse. Keep a record of your results. Ask your provider which readings mean that you need medical attention. ?? Ongoing??care ??? Tell your provider about any medicines you are taking. Some medicines can cause this condition. ??? Before starting any new medicine, ask your provider if it will harm your pancreas. This includes any new susn-ins-ngiiprg medicines, vitamins, or herbal supplements. ??? Tell your pr ovider if you lose weight without dieting. ??? Be aware of symptoms that may mean your pancreatitishas come back. These symptoms include belly pain, nausea and vomiting, and fever. ??? Keep all follow-up appointments with your provider. Problems can often show up later. ??? If your pancreatitis was caused by gallstones, gallbladder removal will likely be advised. ?? Follow-up Follow up with your healthcare provider as advised. ?? When to call your healthcare provider Call your healthcare provider right away or seek immediate medical attention if you have any of thefollowing: ??? Fever??of?? 100.4?? F??( 38.0??C) or higher, or as advised by your provider ??? Chills ??? Severe pain from your upper belly to your back ??? Nausea and vomiting ??? Feel dizzy or lightheaded ??? Yellowing of your skin or eyes (jaundice) ??? Bruises on your belly or back ??? Belly swe lling and tenderness ??? Rapid pulse ??? Shallow, fast breathing ?? Last Reviewed Date: 2021 ?? [employer]. All rights reserved. This information is not intended as a substitute for professional medical care. Always follow your healthcare professional's instructions. ?? Patient Care team information Care Team Personnel Name: Priscila Rae MD Position: [facility] Physician - Primary Care Member Role: PCP Address: Address: [address] [place] [address] Name: Morena Noel RN Position: [facility] RN Member Role: Primary Care Nurse Name: Danita Thomas Position: [facility] Outreach Member Role: Lifetime Consulting Physician Name: Mercedes Srivastava RN Position: [facility] RN Member Role: Primary Care Nurse Name: Magui Swain RN Position: [facility] RN Member Role: Primary Care Nurse Name: Jens SOTO Attending Position: [facility] ED Medicine Name: Adriana Vuong RN Position: [facility] ED RN W/OE and Tasks Member Role: Patient Care Provider Name: Marybeth Lundberg Position: [facility] ED TA [facility] Member Role: Inspector Exhaust Emissions Care Team Related Persons Name: JUANA LUCIA Address: [address] [place] [address] Name: MELLY BOYD Address: [address] [place] [address] Name: MELITON BOYD Address: home [address] [place] [address]
--- OUTSIDE RECORDS SUMMARY | 2023-07-24 21:59 | XMS_ITS | Continuity of Care Document ---
Author Name Unknown Organization [facility] ter Address [address] [place] [id number]- Care Team Providers Care Research Program Internship Name Role Phone Priscila Rae MD Primary Care Physician [phone] Encounter [facility] [place] Date(s): 01/30/23 - 04/07/[address] [id number] Attending Physician: Priscila Rae MD Admitting Physician: Priscila Rae MD Referring Physician: Priscila Rae MD Allergies, Adverse Reactions, Alerts Substance Reaction Severity Status clindamycin N&V Active ciprofloxacin ophthalmic swollen eye Act marie penicillins [D]Nausea and vomiting Activ e sulfa drugs unknown Active Benadryl tardiff dyskinasia Active Immunizations Given and Recorded Vaccine Date Status Refusal Reason [id number] 12y+ bivalent booster vax 10/28/22 Recorded influenza virus vaccine, inactivated 10/24/22 Luiz rded SARS-CoV-2 (COVID-19) mRNA BNT-162b2 vac 10/28/21 Recorded SARS-CoV-2 (COVID-19) mRNA BNT-162b2 vac 03/02/21 Recorded SARS-CoV-2 (COVID-19) mRNA BNT-162b2 vac 01/31/21 Recorded Tet/Diphth/Acel, Pertussis (oldterm) 02/23/09 Give n tetanus/diphtheria/pertussis, acel(Tdap) 02/23/09 Recorded Tetanus-Diphth Toxoids, Adult (oldterm) 1 10/27/96 Given 1Admin Note: Manuf by [facility] Medications aspirin 81 mg oral tablet, chewable 81 mg, 1, tablet, By Mouth, Daily, # 30 tablet, Refills 0, Tot. Refills 0, Maintenance, 02/02/23 9:09:00 EDT, Route to Pharmacy Electronically, [facility]/pharmacy #[id number], Partial fill upon patient request if the prescription is for a schedule II opioid drug.... Start Date: 02/02/23 Status: Ordered Lipitor 20 mg oral tablet 1 tablet = 20 mg, By Mouth, Daily at bedtime, # 30 tablet, 0 Refills, Maintenance, 02/02/23 9:09:00EDT, Tablet, [facility]/pharmacy #2024, Partial fill upon patient request if the prescription is for a schedule II opioid drug., 157, cm, 01/17/23 13:36:00 ED... Start Date: 02/02/23 Status: Ordered nitroglycerin 0.3 mg sublingual tablet 1 tablet = 0.3 mg, Sublingual, Every 5 minutes, PRN for chest pain, # 50 tablet, 0 Refills, Maintenance, 02/02/23 9:19:00 EDT, Tablet, [facility]/pharmacy #2024, Partial fill upon patient request if [...] Personnel Name: Butch RONQUILLO, Priscila Rubalcava Position: [facility] Physician - Primary Care Member Role: PCP Address: Address: [address] [place] [address] [place] [address]- Name: Morena Noel RN Position: [facility] RN Member Role: Primary Care Nurse Name: Danita Thomas Position: [facility] Outreach Member Role: Lifetime Consulting Physician Care Team Related Persons Name: LUCIA ARIAS Address: home [address] [place], [place] Name: MELLY BOYD Address: home [address] [place], [place] Name: MELITON BOYD Address: home [address] [place] [address]
--- OUTSIDE RECORDS SUMMARY | 2023-07-24 21:59 | XMS_ITS | Continuity of Care Document ---
Author Name Unknown Organization [facility] edicine Address [address] [address]- Care Team Providers Care Hat Trimmer Name Role Phone Priscila Rae MD Primary Care Physician [phone] Encounter [facility] [place] [place] Date(s): 01/31/23 - 03/02/23 [facility] [address] [id number] Allergies, Adverse Reactions, Alerts Substance Reaction Severity Status clindamycin N&V Active penicillins [D]Nausea and vomiting Activ e sulfa drugs unknown Active Benadryl tardiff dyskinasia Active ciprofloxacin ophthalmic swollen eye Act marie Immunizations Given and Recorded Vaccine Date Status Refusal Reason [id number] 12y+ bivalent booster vax 10/28/22 Recorded influenza virus vaccine, inactivated 10/24/22 Luiz rded SARS-CoV-2 (COVID-19) mRNA BNT-162b2 vac 10/28/21 Recorded SARS-CoV-2 (COVID-19) mRNA BNT-162b2 vac 03/02/21 Recorded SARS-CoV-2 (COVID-19) mRNA BNT-162b2 vac 01/31/21 Recorded Tet/Diphth/Acel, Pertussis (oldterm) 02/23/09 Give n tetanus/diphtheria/pertussis, acel(Tdap) 02/23/09 Recorded Tetanus-Diphth Toxoids, Adult (oldterm) 1 10/27/96 Given 1Admin Note: Manuf by [employer] [facility] Medications aspirin 81 mg oral tablet, chewable 81 mg, 1, tablet, By Mouth, Daily, # 30 tablet, Refills 0, Tot. Refills 0, Maintenance, 02/02/23 9:09:00 EDT, Route to Pharmacy Electronically, [facility]/pharmacy #2024, Partial fill upon patient request if the prescription is for a schedule II opioid drug.... Start Date: 02/02/23 Status: Ordered Lipitor 20 mg oral tablet 1 tablet = 20 mg, By Mouth, Daily at bedtime, # 30 tablet, 0 Refills, Maintenance, 02/02/23 9:09:00EDT, Tablet, [facility]/pharmacy #2024, Partial fill upon patient request if the prescription is for a schedule II opioid drug., 157, cm, 01/17/23 13:36:00 ED... Start Date: 02/02/23 Status: Ordered nitroglycerin 0.3 mg sublingual tablet 1 tablet = 0.3 mg, Sublingual, Every 5 minutes, PRN for chest pain, # 50 tablet, 0 Refills, Maintenance, 02/02/23 9:19:00 EDT, Tablet, [facility]/pharmacy #2024, Partial fill upon patient request if [...] Team Personnel Name: Priscila Rae MD Position: [facility] Primary Care Physician Member Role: PCP Address: Address: [address] [place] [address]- Name: Morena Noel RN Position: [facility] RN Member Role: Primary Care Nurse Name: Danita Thomas Position: [facility] Outreach Member Role: Lifetime Consulting Physician Care Team Related Persons Name: LUCIA ARIAS Address: home [address] [place], [place] Name: MELLY BOYD Address: [address] [place], [place] Name: MELITON BOYD Address: [address] [place] [address]
--- OUTSIDE RECORDS SUMMARY | 2023-07-24 21:59 | XMS_ITS | Continuity of Care Document ---
Author Name Unknown Organization [facility] ter Address [address] [place] [address]- Care Team Providers Care Meat And Seafood Clerk Name Role Phone Priscila Rae MD Primary Care Physician Encounter [facility] [place] Date(s): 02/18/23 - 03/27/[address] [address] Attending Physician: Priscila Rae MD Admitting Physician: Priscila Rae MD Referring Physician: Priscila Rae MD Allergies, Adverse Reactions, Alerts Substance Reaction Severity Status clindamycin N&V Active ciprofloxacin ophthalmic swollen eye Act marie penicillins [D]Nausea and vomiting Activ e sulfa drugs unknown Active Benadryl tardiff dyskinasia Active Immunizations Given and Recorded Vaccine Date Status Refusal Reason [id number] 12y+ bivalent booster vax 10/28/22 Recorded influenza virus vaccine, inactivated 10/24/22 Luiz rded SARS-CoV-2 (COVID-19) mRNA BNT-162b2 vac 10/28/21 Recorded SARS-CoV-2 (COVID-19) mRNA BNT-162b2 vac 03/02/21 Recorded SARS-CoV-2 (COVID-19) mRNA BNT-162b2 vac 01/31/21 Recorded Tet/Diphth/Acel, Pertussis (oldterm) 02/23/09 Give n tetanus/diphtheria/pertussis, acel(Tdap) 02/23/09 Recorded Tetanus-Diphth Toxoids, Adult (oldterm) 1 10/27/96 Given 1Admin Note: Manuf by [facility] biologic labs Medications aspirin 81 mg oral tablet, chewable 81 mg, 1, tablet, By Mouth, Daily, # 30 tablet, Refills 0, Tot. Refills 0, Maintenance, 02/02/23 9:09:00 EDT, Route to Pharmacy Electronically, [facility]/pharmacy #2024, Partial fill upon patient request if the prescription is for a schedule II opioid drug.... Start Date: 02/02/23 Status: Ordered Lipitor 20 mg oral tablet 1 tablet = 20 mg, By Mouth, Daily at bedtime, # 30 tablet, 0 Refills, Maintenance, 02/02/23 9:09:00EDT, Tablet, [facility]/pharmacy #2024, Partial fill upon patient request if the prescription is for a schedule II opioid drug., 157, cm, 01/17/23 13:36:00 ED... Start Date: 02/02/23 Status: Ordered nitroglycerin 0.3 mg sublingual tablet 1 tablet = 0.3 mg, Sublingual, Every 5 minutes, PRN for chest pain, # 50 tablet, 0 Refills, Maintenance, 02/02/23 9:19:00 EDT, Tablet, [facility]/pharmacy #2024, Partial fill upon patient request [...] Personnel Name: Butch RONQUILLO, Priscila Rubalcava Position: [facility] Physician - Primary Care Member Role: PCP Address: Address: [address] [place] [address] [place] [address]- Name: Morena Noel RN Position: [facility] RN Member Role: Primary Care Nurse Name: Danita Thomas Position: [facility] Outreach Member Role: Lifetime Consulting Physician Care Team Related Persons Name: LUCIA ARIAS Address: [address] [place], [place] Name: MELLY BOYD Address: [address] [place], [place] Name: MELITON BOYD Address: [address] [place] [address]
--- OUTSIDE RECORDS SUMMARY | 2023-07-24 22:00 | XMS_ITS | Continuity of Care Document ---
Author Name Unknown Organization [facility] ter Address [address] [place] [id number]- Care Team Providers Care Instructional Aide Name Role Phone Priscila Rae MD Primary Care Physician [place] [facility] [place]23 - 05/18/[address] [address]- Discharge Disposition: A-D/C Home Attending Physician: Breanna Jose MD Admitting Physician: Breanna Jose MD Referring Physician: Not on Staff, Referring MD Allergies, Adverse Reactions, Alerts Substance Reaction Severity Status clindamycin N&V Active ciprofloxacin ophthalmic swollen eye Act marie penicillins [D]Nausea and vomiting Activ e sulfa drugs unknown Active Benadryl tardiff dyskinasia Active Immunizations Given and Recorded Vaccine Date Status Refusal Reason [id number] 12y+ bivalent booster vax 10/28/22 Recorded influenza [...] EDT, Route to Pharmacy Electronically, [facility]/pharmacy #[id number], Partial fill upon patient request if the prescription is for a schedule II opioid drug.... Start Date: 02/02/23 Status: Ordered Lipitor 20 mg oral tablet 1 tablet = 20 mg, By Mouth, Daily at bedtime, # 30 tablet, 0 Refills, Maintenance, 02/02/23 9:09:00EDT, Tablet, [facility]/pharmacy #[id number], Partial fill upon patient request if the prescription is for a schedule II opioid drug., 157, cm, 01/17/23 13:36:00 ED... Start Date: 02/02/23 Status: Ordered LORazepam 1 mg oral tablet See Instructions, 1 tablet By Mouth one hour before MRI and may repeat once as needed., # 2 tablet,0 Refills, Acute 05/14/24 14:55:00 EDT, 05/13/23 14:46:00 EDT, [facility]/pharmacy #[id number], Do not drive, operate machinery or mix [...] Maintenance, 02/02/23 9:19:00 EDT, Tablet, [facility]/pharmacy #[id number], Partial fill upon patient request if the prescription is for a schedule II opioid drug., 157, cm... Start Date: 02/02/23 Status: Ordered NuLYTELY with Flavor Packs oral powder for reconstitution See Instructions, split prep method. drink one half the night before procedure at 5pm. drink secondhalf six hours prior to procedure., # 4,000 mL, 0 Refills, Maintenance, 04/23/23 13:02:00 EDT, [facility]/pharmacy #[id number], test date 11/03/23, split prep method.... Start Date: 04/23/23 Status: Ordered Problem List Condition Confirmation Course Effective Dates Status Health Status Informant Chiari I malformation Confirmed Active Generalized anxiety disorder Confirmed Active Hypercholesterolemia Confirmed Active Hyperglycemia Confirmed Active Obese class I Confirmed Active Sleep apnea Confirmed Active Tobacco abuse Confirmed 02/23/09 Active Results Radiology Reports * Exam Date Time Procedure Performing Provider Status 05/18/23 1:[address] Abdomen and Pelvi s W/O Contrast Dinora Smith; Dinah (Verified) Notes: (CT Abdomen and Pelvis W/O Contrast) Reason For Exam: Flank pain, kidney stone suspected;Other: RESULT: CT Abdomen and Pelvis W/O Contrast CT Abdomen and Pelvis W/O Contrast Hx of Present Illness: R SIDE PAIN X 2 DAYS AND GETTING WORSE. Reason: Flank pain, kidney stone suspected. Clinical Question(s): Calculus; Left Side flank. TECHNIQUE: Spiral CT through the SPECT at complete abdomen and pelvis without IV contrast formattedin 3 planes. This study was performed without oral contrast. Weight-based protocol using automatic tube modulation was used to optimize exposure parameters. COMPARISON: 07/31/2017. Additional correlation with low-dose CT chest 05/13/2023. FINDINGS: [place] Findings, Lines and Tubes: None. Visualized Chest: Mild dependent atelectasis. Small focus of hyperdensity at the anterior aspect ofthe left upper lobe (201:9), probably atelectasis. Diaphragm: Normal. Liver: 1.3 cm well-circumscribed hypodense simple cyst in hepatic segment 2 (201:21). 1.5 cm well-circumscribed simple cyst in hepatic segment 7 (201:21). Gallbladder: Absent consistent with prior cholecystectomy. Bile ducts: No biliary ductal dilation. Spleen: Normal. Pancreas: Mild hazy peripancreatic inflammatory change most prominent around the head of the pancreas (202:39) and tail (201:55). There are a few prominent adjacent lymph nodes measuring up to 0.8 cmin the short axis (201:43, 202:42). No ductal dilatation. No suspicious mass. No peripancreatic fluid collection. No peripancreatic pseudocyst. Adrenal glands: Normal. Kidneys and ureters: No hydronephrosis, stones, or noncontrast evidence of suspicious masses. Bladder: Mild circumferential urinary bladder wall thickening, likely exacerbated by under distention. No perivesicular fat stranding. Reproductive organs: Status post hysterectomy. Stomach, small bowel, and large bowel: A few scattered colonic diverticula, without evidence of acute diverticulitis. The small bowel is normal in course and caliber, without evidence of obstruction.Small type I (sliding) hiatal hernia. Appendix: Normal. Peritoneum and retroperitoneum: No ascites or pneumoperitoneum. No omental or mesenteric lesions. Lymph nodes: No enlarged lymph nodes. Blood vessels: Mild vascular calcifications but no aneurysm. Mild abdominal aortic vascular calcification. No aneurysm. Abdominal and pelvic wall: Unremarkable. Bones: No acute abnormality. Mild degenerative changes visualized spine, associated with a mild thoracolumbar levoscoliosis. Unchanged peripherally calcified disc lesion at T12-L1 (203:86). IMPRESSION: Mild peripancreatic stranding suggestive of acute interstitial edematous pancreatitis. No peripancreatic fluid collection or pseudocyst. Suggest correlation with pancreatic enzymes. A few scattered colonic diverticula, without evidence of acute diverticulitis. Mild , apparent circumferential bladder wall thickening, probably due to under distention. Correlation with urinalysis could be considered if clinically warranted. Results were relayed by telephone by Dr. Goodrich to Piotr KELLY on 05/18/2023 7:51 AM. I have personally reviewed the images and I agree with this report. WSN: [id number] Ordering Physician: Piotr Locke Dictated By: Kofi Goodrich MD Dictated Date/Time: 05/18/23 8:46 am Reviewed By: Jamir Hill MD Signed By: Jamir Hill MD Signed Date/Time: 05/18/23 8:51 am Transcribed By: EMERALD Transcribed Date/Time: 05/18/23 8:46 am * Exam Date Time Procedure Performing Provider Status 05/17/23 10:55 PM US Pelvic Transvaginal Melanie Romero na; Auth (Verified) Notes: (US Pelvic Transvaginal) Reason For Exam: Pelvic Pain;Other: RESULT: US Pelvic Transvaginal US Pelvic Transabdominal, US Pelvic Transvaginal Hx of Present Illness: R SIDE PAIN X 2 DAYS AND GETTING WORSE. Reason: Pelvic Pain. Clinical Question(s): Torsion. COMPARISON: None TECHNIQUE: Transabdominal and transvaginal ultrasound with grayscale and color Doppler analysis. FINDINGS: UTERUS: Status post hysterectomy. RIGHT OVARY: The right ovary is not seen. LEFT OVARY: The left ovary is not seen. ADNEXA: Normal grayscale and color Doppler appearance. No adnexal masses or fluid collections. IMPRESSION: Status post hysterectomy. Nonvisualization of the ovaries. I have personally reviewed the images and I agree with this report. WSN: [id number] Ordering Physician: Ellis Lewis Dictated By: Kofi Goodrich MD Dictated Date/Time: 05/17/23 11:09 p Reviewed By: Rick Garay MD Signed By: Rick Garay MD Signed Date/Time: 05/17/23 11:14 pm Transcribed By: EMERALD Transcribed Date/Time: 05/17/23 11:05 pm * Exam Date Time Procedure Performing Provider Status 05/17/23 10:55 PM US Pelvic Transabdominal Sereda , Tangela phoebe; Auth (Verified) Notes: (US Pelvic Transabdominal) Reason For Exam: Pelvic Pain;Other: RESULT: US Pelvic Transabdominal US Pelvic Transabdominal, US Pelvic Transvaginal Hx of Present Illness: R SIDE PAIN X 2 DAYS AND GETTING WORSE. Reason: Pelvic Pain. Clinical Question(s): Torsion. COMPARISON: None TECHNIQUE: Transabdominal and transvaginal ultrasound with grayscale and color Doppler analysis. FINDINGS: UTERUS: Status post hysterectomy. RIGHT OVARY: The right ovary is not seen. LEFT OVARY: The left ovary is not seen. ADNEXA: Normal grayscale and color Doppler appearance. No adnexal masses or fluid collections. IMPRESSION: Status post hysterectomy. Nonvisualization of the ovaries. I have personally reviewed the images and I agree with this report. WSN: [id number] Ordering Physician: Ellis Lewis Dictated By: Kofi Goodrich MD Dictated Date/Time: 05/17/23 11:09 p Reviewed By: Rick Garay MD Signed By: Rick Garay MD Signed Date/Time: 05/17/23 11:14 pm Transcribed By: EMERALD Transcribed Date/Time: 05/17/23 11:05 pm * Exam Date Time Procedure Performing Provider Status 05/17/23 10:55 PM US Appendix Jonna Romero; Auth ( Verified) Notes: (US Appendix) Reason For Exam: Abdominal Pain;Other: RESULT: US Appendix US Appendix Hx of Present Illness: R SIDE PAIN X 2 DAYS AND GETTING WORSE. Reason: Abdominal Pain. Clinical Question(s): Appendicitis. COMPARISON: None. IMAGING TECHNIQUE: High-resolution graded compression sonography was performed using a linear arraytransducer at the expected locations of the appendix and at the patient's maximal point of tenderness. FINDINGS: Appendix: There is a partially visualized tubular structure which may represent the appendix. Appendiceal diameter with compression (outer wall to outer wall): 0.3 cm. Wall thickness: Normal. Wall hyperemia: None. Periappendiceal fat: Normal. Fluid: None. Abscess: No abscess or organized fluid collection. Lymph nodes: No regional lymphadenopathy. Additional findings: None. IMPRESSION: Partially visualized, normal-appearing appendix. No findings to suggest appendicitis. Entire appendix is not visualized. I have personally reviewed the images and I agree with this report. WSN: [id number] Ordering Physician: Ellis Lewis Dictated By: Kofi Goodrich MD Dictated Date/Time: 05/17/23 11:02 p Reviewed By: Kelton Mcmahon MD Signed By: Kelton Mcmahon MD Signed Date/Time: 05/17/23 11:07 pm Transcribed By: EMERALD Transcribed Date/Time: 05/17/23 10:50 pm Vital Signs Most recent to oldest [Reference Range]: 1 2 3 Height 158 cm (05/18/23 8:12 AM) 158 cm (05/18/23 2:44 AM) 158 cm (05/17/23 6:44 PM) Weight 79 kg (05/18/23 8:12 AM) 79 kg (05/18/23 2:44 AM) 79 kg (05/17/23 6:44 PM) Oxygen Saturation [94-100 %] 99 % (05/18/23 8:12 AM) 96 % (05/18/23 2:44 AM) 99 % (05/17/23 10:00 PM) Pulse Rate [55-90 bpm] 56 bpm (05/18/23 8:12 AM) 55 bpm (05/18/23 2:44 AM) 60 bpm (05/17/23 10:00 PM) Body Mass Index [18.5-24.99 kg/m2] 31.65 kg/m2 *>HHI* (05/18/23 8:12 AM) 31.65 kg/m2 *>HHI* (05/18/23 2:44 AM) Blood Pressure [90-138/55-84 mm Hg] 145/66mm Hg *H* (05/18/23 8:12 AM) 107/55mm Hg (05/18/23 2:44 AM) 110/55mm Hg (05/17/23 10:00 PM) Respiratory Rate [16-30 br/min] 21 br/min (05/18/23 8:12 AM) 16 br/min (05/18/23 2:44 AM) 18 br/min (05/17/23 10:00 PM) Temperature [96.8-100.4 DegF] 98.1 DegF (05/18/23 2:44 AM) 98.5 DegF (05/17/23 10:00 PM) 98.6 DegF (05/17/23 6:44 PM) Mode of Delivery (Oxygen) Room air (05/18/23 8:12 AM) Room air (05/18/23 2:44 AM) Room air (05/17/23 10:00 PM) Blood pressure sites Arm, left (05/18/23 8:12 AM) Arm, left (05/18/23 2:44 AM) Arm, left (05/17/23 6:44 PM) Temperature Route Oral (05/18/23 2:44 AM) Oral (05/17/23 10:00 PM) Oral (05/17/23 6:44 PM) Dry Weight 79 kg (05/18/23 8:12 AM) 79 kg (05/18/23 2:44 AM) 79 kg (05/17/23 6:44 PM) Social History Social History Type Response Smoking Status Current every day sm oker; Type: Cigarettes; Other: 10-15 cig per day; entered on: 12/20/14 Sex Patient Care team information Care Team Personnel Name: Priscila Rae MD Position: [facility] Physician - Primary Care Member Role: PCP Address: Address: [address] [place] [address] [place], [place] [address] Name: Morena Noel RN Position: [facility] RN Member Role: Primary Care Nurse Name: Danita Thomas Position: [facility] Outreach Member Role: Lifetime Consulting Physician Name: Waldo Dias DO Position: [facility] Resident Member Role: ED Resident Address: Address: [address] [place] [address] Name: Sugey Calloway Position: [facility] ED TA [facility] Member Role: Asian Studies Professor Name: Piotr Cain Position: [facility] Associate Professional Member Role: ED Physician Hospice Clinical Marketer Address: Address: [address] [place] [id number]- Name: Lakshmi LOPEZ, Melba Position: [facility] ED RN W/OE and Tasks Member Role: Patient Care Provider Name: Breanna Jose MD Position: [facility] ED Medicine MD Member Role: Admitting Physician Address: Address: [address] [place] [id number]- Care Team Related Persons Name: LUCIA ARIAS Address: home [address], [place] Name: MELLY BOYD Address: home [address], [place] Name: MELITON BOYD Address: home [address] [place] [address]
--- OUTSIDE RECORDS SUMMARY | 2023-07-24 22:00 | XMS_ITS | Continuity of Care Document ---
Author Name Unknown Organization [facility] ter Address [address] [place] [id number]- Care Team Providers Care Dredging Inspector Name Role Phone Priscila Rae MD Primary Care Physician [place] [facility] [place](s): 02/14/23 - 03/30/[address] [id number] Attending Physician: Nay Hemphill NP Admitting Physician: Nay Hemphill NP Referring Physician: Nay Hemphill NP Allergies, Adverse Reactions, Alerts Substance Reaction Severity Status clindamycin N&V Active ciprofloxacin ophthalmic swollen eye Act marie penicillins [D]Nausea and vomiting Activ e sulfa drugs unknown Active Benadryl tardiff dyskinasia Active Immunizations Given and Recorded Vaccine Date Status Refusal Reason [id number] 12y+ bivalent booster vax 10/28/22 Recorded influenza [...] 02/02/23 9:09:00 EDT, Route to Pharmacy Electronically, [facility]/pharmacy #[id number], Partial fill upon patient request if the prescription is for a schedule II opioid drug.... Start Date: 02/02/23 Status: Ordered Lipitor 20 mg oral tablet 1 tablet = 20 mg, By Mouth, Daily at bedtime, # 30 tablet, 0 Refills, Maintenance, 02/02/23 9:09:00EDT, Tablet, [facility]/pharmacy #[id number], Partial fill upon patient request if the prescription is for a schedule II opioid drug., 157, cm, 01/17/23 13:36:00 ED... Start Date: 02/02/23 Status: Ordered nitroglycerin 0.3 mg sublingual tablet 1 tablet = 0.3 mg, Sublingual, Every 5 minutes, PRN for chest pain, # 50 tablet, 0 Refills, Maintenance, 02/02/23 9:19:00 EDT, Tablet, [facility]/pharmacy #[id number], Partial fill upon patient [...] Team Personnel Name: Priscila Rae MD Position: [facility] Physician - Primary Care Member Role: PCP Address: Address: [address] [place] [address] Name: Morena Noel RN Position: [facility] RN Member Role: Primary Care Nurse Name: Danita Thomas Position: [facility] Outreach Member Role: Lifetime Consulting Physician Care Team Related Persons Name: LUCIA ARIAS Address: home [address], [place] Name: MELLY BOYD Address: home [address], [place] Name: MELITON BOYD Address: home [address] [place] [address]
== END 2023-07-24 22:25 | disposition home or self-care (01) ==
PROVIDERS: Emergency Provider Emergency Medicine; PCP Internal Medicine
DX: S60.222A Contusion of left hand, initial encounter (principal); W01.0XXA Fall on same level from slipping, tripping and stumbling without subsequent striking against object, initial encounter; Y93.89 Activity, other specified; Y92.019 Unspecified place in single-family (private) house as the place of occurrence of the external cause; Y99.9 Unspecified external cause status
CPT/HCPCS: 73110; 73130; 99283; 99284